=== PATIENT | female | born 1955 | race Caucasian/White ===

== ENCOUNTER → 2018-11-30 | Outpatient (CLI) | payer MEDICARE, MEDICAID ==
[2018-11-30 12:56] LABS: ABG BASE EXCESS 1.8 MMOL/L (-2.5-2.5); ABG OXYGEN SATURATION 98 % (94-100); ABG PCO2 37 MMHG (35-45); ABG PH 7.45 (7.37-7.43); ABG PO2 106 MMHG (79-93); ABG TCO2 26.8 MMOL/L (21.0-31.0)
[2018-11-30 12:57] LABS: ALLENS TEST YES-POS; INSPIRED O2 ROOM AIR
== END ==
LOC: LAB FS 09:55
PROVIDERS: ATTEND Family Medicine
DX: J44.9 Chronic obstructive pulmonary disease, unspecified (principal)
CPT/HCPCS: 82805

== ENCOUNTER → 2018-12-28 | Outpatient (CLI) | payer MEDICARE, MEDICAID ==
[2018-12-28 10:53] LABS: CARBON DIOXIDE 23 MMOL/L (21-32); CHLORIDE 105 MMOL/L (98-107); POTASSIUM 4.4 MMOL/L (3.6-5.0); SODIUM 140 MMOL/L (135-145)
[2018-12-28 10:54] LABS: ALANINE AMINOTRANSFERASE 105 U/L (0-55); ALBUMIN 4.2 GM/DL (3.2-4.5); ALKALINE PHOSPHATASE 62 U/L (40-136); BILIRUBIN,TOTAL 0.2 MG/DL (0.1-1.0); BUN/CREATININE RATIO 18; GFR ESTIMATED > 60; GLUCOSE 109 MG/DL (70-105); TOTAL PROTEIN 6.8 GM/DL (6.4-8.2)
[2018-12-28 15:01] LABS: CHOLESTEROL 174 MG/DL (< 200); HDL CHOLESTEROL 53 MG/DL (40-60); TRIGLYCERIDES 163 MG/DL (<150); VLDL CHOLESTEROL 33 MG/DL (5-40)
== END ==
LOC: LAB FS 09:12
PROVIDERS: ATTEND Internal Medicine Cardiovascular Disease
DX: E78.00 Pure hypercholesterolemia, unspecified (principal); I25.5 Ischemic cardiomyopathy; I25.118 Atherosclerotic heart disease of native coronary artery with other forms of angina pectoris; I10 Essential (primary) hypertension
CPT/HCPCS: 36415; 80053; 80061

== ENCOUNTER 2019-08-12 15:25 | Emergency (ER) | payer MEDICARE, MEDICAID ==
[~2019-08-12] VITALS: Ht 160 cm; Wt 93.7 kg
[2019-08-12] MEDS ORDERED: NS IV 1000 ML 1,000 ML IV SCH (16:47)
[2019-08-12] MEDS ORDERED: AMPICILLIN/SULBACTAM INJECTION 3 GM in NS (IVPB) 100 ML IV ONE (17:00)
[2019-08-12] MEDS ORDERED: ONDANSETRON 4 MG/2 ML (SDV) Z0FRAN IVP ONE (17:00)
[2019-08-12] MEDS ORDERED: TETANUS,DIPTH,PERTUSS P/F (BOOSTRIX) 0.5 ML VIAL IM ONE (17:00)
[2019-08-12] MEDS ORDERED: KETOROLAC 30 MG/ML VIAL IVP ONE (17:00)
[2019-08-12] MEDS ORDERED: oxyCODONE/APAP 5/325MG (PERCOCET 5) TABLET PO ONE (17:00)
--- NOTE | 2019-08-12 17:09 | Diagnostic Imaging Report ---
INDICATION: Right hand swelling and redness after cat bite. COMPARISON: Right wrist radiographs performed concurrently. TECHNIQUE: Three views of the right hand were obtained. FINDINGS: Marked soft tissue swelling in the dorsal aspect of the hand is noted. No osseous erosions or cortical indistinctness. No fracture. Scattered degenerative changes throughout the interphalangeal joints. There are also degenerative changes of the thumb base. IMPRESSION: 1. Soft tissue swelling without radiographic features of osteomyelitis. Dictated by: Dictated on workstation # [id number]
--- NOTE | 2019-08-12 17:21 | Diagnostic Imaging Report ---
INDICATION: Wrist swelling after cat bite. COMPARISON: Right hand radiographs performed concurrently. FINDINGS: Dorsal soft tissue swelling is present in the hand and wrist. No radiopaque foreign body. No fracture or osseous erosions. Degenerative changes in the thumb base are present. IMPRESSION: Soft tissue swelling without radiographic features of osteomyelitis. Dictated by: Dictated on workstation # [id number]
--- NOTE | 2019-08-12 18:26 | ED General ---
General Chief Complaint: General Problems/Pain Stated Complaint: RT HAND SWELLING/REDNESS HX CAT BITE History of Present Illness Date Seen by Provider: Aug 12, 2019 Time Seen by Provider: 16:00 Initial Comments The patient is a 63-year-old female who presents for evaluation of cat bites to her right hand occurring yesterday. Patient states that she "messed with" her cat and it bit her. The cat's immunizations are up-to-date. She sustained several bites over her dorsal right hand and wrist. These just ached until earlier today when they became acutely swollen and red and painful. Upon arrival to the emergency department the patient's hand and wrist are mildly red and swollen. She denies any fevers, nausea or vomiting or other systemic symptoms of concern. She denies any pain or swelling proximal to the wrist or very distal forearm on the right. No therapy for discomfort prior to arrival. Tetanus is not up-to-date. Allergies and Home Medications Allergies Coded Allergies: No Known Drug Allergies (Unverified , 08/12/19) Patient Home Medication List Home Medication List Reviewed: Yes Review of Systems Review of Systems Constitutional: see HPI All Other Systems Reviewed Negative Unless Noted: Yes (Negative excepted noted.) Past Fbghvzp-Hqndal-Yzjfuf Hx Past Med/Social Hx: Reviewed Nursing Past Med/Soc Hx Patient Social History Recent Foreign Travel: No Family Medical History Reviewed Nursing Family Hx Physical Exam Vital Signs Capillary Refill : Height, Weight, BMI Height: '" Weight: lbs. oz. kg; BMI Method: General Appearance: No Apparent Distress Comments This is an older female appearing nontoxic and in no acute distress. Head is normocephalic and atraumatic. Neck is supple and nontender. Oropharynx is moist. Lungs are clear to auscultation in all stations. There is a normal S1 and S2 without rubs or gallops and capillary refill is appropriate, less than 2 seconds globally. Abdomen is soft, nontender and nondistended. Skin is warm and dry without cyanosis, clubbing or edema. Psychiatrically, the patient demonstrates appropriate mood and affect and is alert. From a musculoskeletal standpoint, evaluation of the right upper extremity is remarkable for moderate tenderness and erythema and swelling affecting the dorsal aspect of the right hand radiating up into the very distal-most several centimeters of the right forearm. There is no proximal lymphangitic streaking. There is no significant swelling of the digits of the hand. There is no joint irritability to the right upper extremity. The right upper extremity is neurovascularly intact distally with strength 5 out of 5, sensation intact to light touch in median, radial and ulnar nerve distributions, radial pulse 2+, capillary refill less than 2 seconds, hand warm and well perfused. Progress/Results/Core Measures Suspected Sepsis SIRS Temperature: Pulse: Respiratory Rate: Blood Pressure / Mean: Results/Orders My Orders Orders - JAZZ BAUTISTA MD Ampicillin/Sulbactam Injection (Unasyn 3 (08/12/19 17:00) Ondansetron Injection (Zofran Injectio (08/12/19 17:00) Ed Iv/Invasive Line Start (08/12/19 16:47) Ns Iv 1000 Ml (Sodium Chloride 0.9%) (08/12/19 16:47) Ketorolac Injection (Toradol Injection) (08/12/19 17:00) Oxycodone/Apap 5/325mg Tablet (Percocet (08/12/19 17:00) Hand 3 View Right (08/12/19 16:47) Wrist 3 View Right (08/12/19 16:47) Dipht,Pertuss(Acell),Tet Adult (Boostrix (08/12/19 17:00) Medications Given in ED Current Medications Medications Dose Ordered Sig/Timmy Route Start Time Stop Time Status Last Admin Dose Admin Ampicillin Sodium/ Sulbactam Sodium 3 gm/Sodium Chloride 100 ml @ 200 mls/hr ONCE ONCE IV 08/12/19 17:00 08/12/19 17:29 DC 08/12/19 18:01 200 MLS/HR Diphtheria/ Tetanus/Acell Pertussis 0.5 ml ONCE ONCE IM 08/12/19 17:00 08/12/19 17:01 DC 08/12/19 18:00 0.5 ML Ketorolac Tromethamine 30 mg ONCE ONCE IVP 08/12/19 17:00 08/12/19 17:01 DC 08/12/19 18:01 30 MG Ondansetron HCl 4 mg ONCE ONCE IVP 08/12/19 17:00 08/12/19 17:01 DC 08/12/19 18:01 4 MG Oxycodone/ Acetaminophen 1 tab ONCE ONCE PO 08/12/19 17:00 08/12/19 17:01 DC 08/12/19 18:01 1 TAB Vital Signs/I&O Capillary Refill : Progress Note : Time: 18:26 Progress Note 63-year-old female with an apparent localized right hand and wrist cellulitis related to cat bite sustained yesterday. No systemic symptoms. We will check plain films to evaluate for retained teeth or bony injury although low suspicion for these. We'll update tetanus. We'll treat discomfort. We'll place IV and give a dose of IV Unasyn and then plan for discharge home on oral Augmentin and pain medications with a plan to follow up with primary care in the next 1-2 days. I did discuss with the patient that if her symptoms worsen overnight instead of improving then she needs to return to the emergency department right away and at that point will likely need to be admitted. She understands and agrees with this plan of care. Update: Patient is feeling better after pain medication and Unasyn dose here in the emergency department. We'll discharge home on Augmentin as well as diclofenac and Percocet for pain. I reiterated to the patient that it is imperative that she return right away if her symptoms worsen or if other new symptoms of concern develop. She understands and agrees. Diagnostic Imaging Comments POSWRIST 3 VIEW RIGHT INDICATION: Wrist swelling after cat bite. COMPARISON: Right hand radiographs performed concurrently. FINDINGS: Dorsal soft tissue swelling is present in the hand and wrist. No radiopaque foreign body. No fracture or osseous erosions. Degenerative changes in the thumb base are present. IMPRESSION: Soft tissue swelling without radiographic features of osteomyelitis. Dictated by: Dictated on workstation # [id number] Date of Exam:08/12/19 HAND 3 VIEW RIGHT INDICATION: Right hand swelling and redness after cat bite. COMPARISON: Right wrist radiographs performed concurrently. TECHNIQUE: Three views of the right hand were obtained. FINDINGS: Marked soft tissue swelling in the dorsal aspect of the hand is noted. No osseous erosions or cortical indistinctness. No fracture. Scattered degenerative changes throughout the interphalangeal joints. There are also degenerative changes of the thumb base. IMPRESSION: 1. Soft tissue swelling without radiographic features of osteomyelitis. Dictated on workstation # [id number] Departure Impression Primary Impression: Cat bite of right hand with infection Qualified Codes: S61.451A - Open bite of right hand, initial encounter; L08.9 - Local infection of the skin and subcutaneous tissue, unspecified; W55.01XA - Bitten by cat, initial encounter Disposition: 01 HOME, SELF-CARE Condition: Improved Departure-Patient Inst. Referrals: SHANNAN BOYCE MD (PCP/Family) Primary Care Physician Patient Instructions: Animal Bites (DC), Wound Infection Add. Discharge Instructions: Follow-up with her primary care physician in the next 1-2 days as discussed. Use the antibiotic and pain medications as prescribed. Return right away with worsening symptoms or any other new symptoms of concern. Scripts Amoxicillin/Potassium Clav (Augmentin 875-125 Tablet) 1 Each Tablet 1 TAB PO BID for 10 Days, #20 TAB 0 Refills Prov: JAZZ BAUTISTA MD 08/12/19 Oxycodone HCl/Acetaminophen (Percocet 5-325 mg Tablet) 1 Each Tablet 1 TAB PO Q6H for Breakthrough Pain MDD 6 TABS for 7 Days, #10 TAB Prov: JAZZ BAUTISTA MD 08/12/19 Diclofenac Potassium (Diclofenac Potassium) 50 Mg Tablet 50 MG PO Q8H for pain/swelling, #30 TAB Prov: JAZZ BAUTISTA MD 08/12/19 JAZZ BAUTISTA MD Aug 12, 2019 18:26 POS
[2019-08-12] MEDS ORDERED: OXYC1TAB87 PO (18:32)
[2019-08-12] MEDS ORDERED: AMOX-358 PO (18:32)
[2019-08-12] MEDS ORDERED: DICL50TA4 PO (18:32)
[2019-08-12 19:50] VITALS: BP 137/58
== END 2019-08-12 19:50 | disposition home or self-care (01) ==
LOC: EDUNIT# 15:25 → ER FS 15:26
DX: S61.451A Open bite of right hand, initial encounter (principal); L08.9 Local infection of the skin and subcutaneous tissue, unspecified; Z23 Encounter for immunization; W55.01XA Bitten by cat, initial encounter
CPT/HCPCS: 73110; 73130; 90715

== ENCOUNTER → 2019-12-27 | Outpatient (CLI) | payer MEDICARE, MEDICAID ==
[~2019-12-27] MED LIST: AMOX-358 PO; CATHETER FLUSH 10 ML SYR IV PRN; DICL50TA4 PO; HOLD METFORMIN - RECEIVED CONTRAST 20 ML VIAL IV SCH; IOHEXOL 350 MG/ML 100 ML (OMNIPAQUE 350) VIAL IV ONE; NS 100 ML (IVPB) BAG IV ONE; OXYC1TAB87 PO
[2019-12-27 12:34] LABS: BASOPHILS % (AUTO) 1 % (0-10); EOSINOPHILS % (AUTO) 2 % (0-10); HEMATOCRIT 37 % (35-52); HEMOGLOBIN 13.2 G/DL (11.5-16.0); LYMPHOCYTES # (AUTO) 3.3 X 10^3 (1.0-4.0); LYMPHOCYTES % (AUTO) 22 % (12-44); MEAN CORPUSCULAR HEMOGLOBIN 32 PG (25-34); MEAN CORPUSCULAR HGB CONC 36 G/DL (32-36); MEAN CORPUSCULAR VOLUME 89 FL (80-99); MEAN PLATELET VOLUME 10.1 FL (7.4-10.4); MONOCYTES % (AUTO) 10 % (0-12); NEUTROPHILS # (AUTO) 9.9 X 10^3 (1.8-7.8); NEUTROPHILS % (AUTO) 65 % (42-75); PLATELET COUNT 331 10^3/uL (130-400); RED CELL DISTRIBUTION WIDTH 12.2 % (10.0-14.5); WHITE BLOOD COUNT 15.1 10^3/uL (4.3-11.0)
[2019-12-27 12:35] LABS: BASOPHILS # (AUTO) 0.1 10^3/uL (0.0-0.1); EOSINOPHILS # (AUTO) 0.3 10^3/uL (0.0-0.3); MONOCYTES # (AUTO) 1.5 X 10^3 (0.0-1.0)
[2019-12-27 12:49] LABS: CHLORIDE 95 MMOL/L (98-107); POTASSIUM 3.2 MMOL/L (3.6-5.0); SODIUM 138 MMOL/L (135-145)
[2019-12-27 12:50] LABS: ALANINE AMINOTRANSFERASE 46 U/L (0-55); ALBUMIN 4.5 GM/DL (3.2-4.5); ALKALINE PHOSPHATASE 53 U/L (40-136); BUN/CREATININE RATIO 13; CARBON DIOXIDE 26 MMOL/L (21-32); CREATININE SERUM 0.79 MG/DL (0.60-1.30); GFR ESTIMATED > 60; GLUCOSE 109 MG/DL (70-105); LIPASE 29 U/L (8-78); TOTAL PROTEIN 7.2 GM/DL (6.4-8.2)
--- NOTE | 2019-12-27 13:50 | Diagnostic Imaging Report ---
PROCEDURE: CT abdomen and pelvis with contrast. TECHNIQUE: Multiple contiguous axial images were obtained through the abdomen and pelvis after administration of intravenous contrast. Auto Exposure Controls were utilized during the CT exam to meet ALARA standards for radiation dose reduction. INDICATION: Right-sided abdominal pain for two days as well as nausea. COMPARISON: No prior studies are available for comparison. FINDINGS: Lung bases are clear. There does appear to be a moderate-sized hiatal hernia. Liver does show some mild generalized low density, suggestive of hepatic steatosis. Gallbladder is surgically absent. Multiple surgical clips in the gallbladder fossa are noted. There is calcification along the right lobe liver edge. This may represent a granuloma. There is a 9 mm indeterminate low density in the inferior right lobe of the liver. This is too small to characterize. The pancreas and spleen are unremarkable. No adrenal mass is detected. Kidneys contain tiny cortical low densities, too small to characterize. No hydronephrosis is seen. Aorta is nonaneurysmal. There does appear to be an enlarged lymph node in the central retroperitoneum in the upper aortocaval location measuring 1.5 x 2.2 cm. Slightly prominent lymph node in the portacaval location is also seen measuring 2.0 x 1.0 cm. There is an enlarged lymph node in the left para-aortic location at the level of the renal vasculature measuring 1.8 cm. An aortocaval node measures 2.2 x 1.5 cm. There is some slight hazy density in the region of the proximal SMA and celiac. There is a low-density lesion in the region of the uncinate process of the pancreas measuring 1.6 cm. There is a lymph node just lateral to this measuring 15 mm. No significant pancreatic ductal dilatation is seen. The small and large bowel loops are normal in caliber. No obstruction is seen. There is no free fluid or fluid collection. The bladder is decompressed. No pelvic lymphadenopathy is detected. IMPRESSION: 1. Hiatal hernia. 2. Subcentimeter indeterminate low density in the inferior right lobe of the liver. 3. Central retroperitoneal as well as portacaval and luisa hepatis lymphadenopathy. There is a low density in the central retroperitoneum which may be within the pancreatic parenchyma near the uncinate, concerning for a pancreatic mass. No significant pancreatic or biliary ductal dilatation is seen. A PET scan may be useful for further evaluation. Dictated by: Dictated on workstation # [id number]
[2019-12-27 14:30] LABS: BAND NEUTROPHILS 0 %; BASOPHILS % (MANUAL) 1 %; EOSINOPHILS % (MANUAL) 2 %; LYMPHOCYTES % (MANUAL) 24 %; MONOCYTES % (MANUAL) 9 %; NEUTROPHILS % (MANUAL) 64 %; RBC MORPH NORMAL
== END ==
LOC: RAD FS 11:59
PROVIDERS: ATTEND Family Medicine
DX: R10.11 Right upper quadrant pain (principal); K44.9 Diaphragmatic hernia without obstruction or gangrene; K76.9 Liver disease, unspecified; R59.0 Localized enlarged lymph nodes
CPT/HCPCS: 36415; 74177; 80053; 83690; 85007; 85027

== ENCOUNTER → 2020-01-07 | Outpatient (CLI) | payer MEDICARE, MEDICAID ==
[~2020-01-07] MED LIST changes: -CATHETER FLUSH 10 ML SYR IV PRN; -HOLD METFORMIN - RECEIVED CONTRAST 20 ML VIAL IV SCH; -IOHEXOL 350 MG/ML 100 ML (OMNIPAQUE 350) VIAL IV ONE; -NS 100 ML (IVPB) BAG IV ONE
--- NOTE | 2020-01-07 16:17 | Diagnostic Imaging Report ---
INDICATION: Abnormal recent CT study demonstrating enlarged lymph nodes in the upper abdomen as well as a cystic lesion in the region of the pancreas. This study is performed for further evaluation. TECHNIQUE: Serum blood glucose level at the time of injection is 137 mg/dL. Patient was administered 12.6 mCi of F-18 FDG intravenously in the left antecubital location and PET imaging was performed from the top of skull to mid thighs. Noncontrast CT was also performed for attenuation correction and anatomic correlation. Correlation is made with recent CT study from 12/27/2019. No prior PET/CT study is available for comparison. FINDINGS: There is symmetric activity throughout the brain. Soft tissues of the neck are unremarkable. The mediastinum and adolfo are unremarkable. No pulmonary parenchymal hypermetabolism is identified. Abdomen and pelvis demonstrate physiologic activity within the GI and tracts. Previously noted prominent lymph nodes in the upper abdomen show a somewhat low-level activity. A lymph node in the aortocaval region at the level of the renal vasculature demonstrates an SUV max of 3.4. No hypermetabolism in the region of the cystic lesion adjacent to the pancreas is identified. No other suspicious abnormalities are identified in the abdomen or pelvis. IMPRESSION: Only low-level activity within prominent lymph nodes in the upper abdomen is identified, indeterminate. Cystic lesion within or adjacent to the uncinate process of the pancreas is without hypermetabolism. Even so, continued close-interval follow-up with CT would be recommended to confirm stability. Dictated by: Dictated on workstation # [id number]
== END ==
LOC: RAD 10:35
PROVIDERS: ATTEND Family Medicine
DX: R59.0 Localized enlarged lymph nodes (principal)

== ENCOUNTER 2021-04-05 18:57 | Observation (INO) | payer MEDICARE, MEDICAID ==
[~2021-04-05] VITALS: Ht 162.5 cm; Wt 85.7 kg
--- NOTE | 2021-04-05 19:14 | ED General ---
General Stated Complaint: SWELLING IN LEGS/ABD Source of Information: Patient History of Present Illness Date Seen by Provider: Apr 05, 2021 Time Seen by Provider: 19:10 Initial Comments 65-year-old female presents with swelling of her abdomen and lower extremities for the past 10 days and gradually getting worse. Past medical history significant for coronary artery disease with heart attack and multiple stents in 1997. Patient denies any recent illness, fever chills, chest pain or shortness of air, nausea vomiting or diarrhea. Similar episodes of swelling in the past. She does state she had a bad fall out of bed landing on her face and stomach 3 weeks ago.... She is not sure if that caused the problem. Allergies and Home Medications Allergies Coded Allergies: No Known Drug Allergies (Unverified , 08/12/19) Home Medications Amoxicillin/Potassium Clav 1 Each Tablet, 1 TAB PO BID Prescribed by: JAZZ BAUTISTA on 08/12/191831 Diclofenac Potassium 50 Mg Tablet, 50 MG PO Q8H Prescribed by: JAZZ BAUTISTA on 08/12/191831 Oxycodone HCl/Acetaminophen 1 Each Tablet, 1 TAB PO Q6H Prescribed by: JAZZ BAUTISTA on 08/12/191831 Patient Home Medication List Home Medication List Reviewed: Yes Review of Systems Review of Systems Constitutional: No chills, No fever; malaise, weight gain EENTM: no symptoms reported Respiratory: No cough, No short of breath Cardiovascular: No chest pain; edema; No palpitations, No syncope Gastrointestinal: abdominal pain, loss of appetite; No nausea, No vomiting Genitourinary: No dysuria, No frequency, No hematuria Musculoskeletal: No back pain, No joint pain, No joint swelling Skin: change in color (redness of legs) Psychiatric/Neurological: Denies Headache, Denies Numbness, Denies Seizure Past Rywdhbh-Cbsghc-Ymiibn Hx Patient Social History Tobacco Use?: No Seasonal Allergies Seasonal Allergies: No Past Medical History Surgeries: Yes Appendectomy, Coronary Stent, Gallbladder, Orthopedic Respiratory: Yes COPD Cardiac: Yes Coronary Artery Disease, Hypertension Neurological: No Genitourinary: No Gastrointestinal: No Musculoskeletal: No Endocrine: Yes Diabetes, Non-Insulin dep HEENT: No Cancer: No Psychosocial: No Integumentary: No Physical Exam Vital Signs Vital Signs - First Documented 04/05/21 18:59 Temp 36.5 Pulse 70 Resp 18 B/P (MAP) 157/68 (97) Pulse Ox 99 Capillary Refill : Height, Weight, BMI Height: '" Weight: lbs. oz. kg; 36.00 BMI Method: General Appearance: No Apparent Distress, WD/WN Eyes: Bilateral Eye PERRL, Bilateral Eye EOMI HEENT: PERRL/EOMI, Normal ENT Inspection Neck: Full Range of Motion, Non Tender, Supple Respiratory: Chest Non Tender, Lungs Clear Cardiovascular: Regular Rate, Rhythm, No JVD, Other (Moderate symmetrical LE edema from feet up to thighs and abdomen) Gastrointestinal: Distended (and firm); No Guarding, No Hernia Back: Normal Inspection, No CVA Tenderness, No Vertebral Tenderness Neurologic/Psychiatric: Alert, Oriented x3, No Motor/Sensory Deficits, Normal Mood/Affect Focused Exam Lactate Level 04/05/21 19:24: Lactic Acid Level 1.88 Lactic Acid Level Laboratory Tests Test 04/05/21 19:24 Lactic Acid Level 1.88 MMOL/L (0.50-2.00) Progress/Results/Core Measures Suspected Sepsis SIRS Temperature: Pulse: Respiratory Rate: Laboratory Tests 04/05/21 19:12: White Blood Count 11.0 Blood Pressure / Mean: 04/05/21 19:24: Lactic Acid Level 1.88 Laboratory Tests 04/05/21 19:12: Creatinine 1.21, INR Comment 1.0, Platelet Count 287, Total Bilirubin 0.3 Results/Orders Lab Results Laboratory Tests Test 04/05/21 19:12 04/05/21 19:22 04/05/21 19:24 Range/Units White Blood Count 11.0 4.3-11.0 10^3/uL Red Blood Count 3.86 L 4.35-5.85 10^6/uL Hemoglobin 11.8 11.5-16.0 G/DL Hematocrit 37 35-52 % Mean Corpuscular Volume 97 80-99 FL Mean Corpuscular Hemoglobin 31 25-34 PG Mean Corpuscular Hemoglobin Concent 32 32-36 G/DL Red Cell Distribution Width 14.5 10.0-14.5 % Platelet Count 287 130-400 10^3/uL Mean Platelet Volume 10.5 H 7.4-10.4 FL Immature Granulocyte % (Auto) 0 % Neutrophils (%) (Auto) 60 42-75 % Lymphocytes (%) (Auto) 26 12-44 % Monocytes (%) (Auto) 12 0-12 % Eosinophils (%) (Auto) 1 0-10 % Basophils (%) (Auto) 1 0-10 % Neutrophils # (Auto) 6.6 1.8-7.8 X 10^3 Lymphocytes # (Auto) 2.9 1.0-4.0 X 10^3 Monocytes # (Auto) 1.3 H 0.0-1.0 X 10^3 Eosinophils # (Auto) 0.1 0.0-0.3 10^3/uL Basophils # (Auto) 0.1 0.0-0.1 10^3/uL Immature Granulocyte # (Auto) 0.0 0.0-0.1 10^3/uL Percent Immature Platelet Fraction 2.8 0.0-7.6 % Prothrombin Time 13.9 12.2-14.7 SEC INR Comment 1.0 0.8-1.4 Activated Partial Thromboplast Time 29 24-35 SEC D-Dimer 2.12 H 0.00-0.49 UG/ML Sodium Level 142 135-145 MMOL/L Potassium Level 3.7 3.6-5.0 MMOL/L Chloride Level 103 98-107 MMOL/L Carbon Dioxide Level 25 21-32 MMOL/L Anion Gap 14 5-14 MMOL/L Blood Urea Nitrogen 18 7-18 MG/DL Creatinine 1.21 0.60-1.30 MG/DL Estimat Glomerular Filtration Rate 44 BUN/Creatinine Ratio 15 Glucose Level 74 70-105 MG/DL Calcium Level 9.3 8.5-10.1 MG/DL Corrected Calcium 9.2 8.5-10.1 MG/DL Total Bilirubin 0.3 0.1-1.0 MG/DL Aspartate Amino Transf (AST/SGOT) 21 5-34 U/L Alanine Aminotransferase (ALT/SGPT) 15 0-55 U/L Alkaline Phosphatase 71 40-136 U/L Pro-B-Type Natriuretic Peptide 6812.0 H <75.0 PG/ML Total Protein 6.9 6.4-8.2 GM/DL Albumin 4.1 3.2-4.5 GM/DL Urine Color YELLOW Urine Clarity CLEAR Urine pH 6.0 5-9 Urine Specific [place] 1.010 L 1.016-1.022 Urine Protein 2+ H NEGATIVE Urine Glucose (UA) NEGATIVE NEGATIVE Urine Ketones NEGATIVE NEGATIVE Urine Nitrite NEGATIVE NEGATIVE Urine Bilirubin NEGATIVE NEGATIVE Urine Urobilinogen 0.2 < = 1.0 MG/DL Urine Leukocyte Esterase NEGATIVE NEGATIVE Urine RBC (Auto) NEGATIVE NEGATIVE Urine RBC NONE /HPF Urine WBC 0-2 /HPF Urine Squamous Epithelial Cells RARE /HPF Urine Crystals NONE /LPF Urine Bacteria NEGATIVE /HPF Urine Casts NONE /LPF Urine Mucus NEGATIVE /LPF Urine Culture Indicated NO Lactic Acid Level 1.88 0.50-2.00 MMOL/L My Orders Orders - ELISA WOOD DO Ed Iv/Invasive Line Start (04/05/21 19:14) Urinalysis (04/05/21 19:14) Protime With Inr (04/05/21 19:14) Partial Thromboplastin Time (04/05/21 19:14) Cbc With Automated Diff (04/05/21 19:14) Comprehensive Metabolic Panel (04/05/21 19:14) Lactic Acid Analyzer (04/05/21 19:14) Ct Abdomen/Pelvis W (04/05/21 19:14) Iohexol Injection (Omnipaque 350 Mg/Ml 1 (04/05/21 19:30) Received Contrast (Hold Metformin- Contr (04/05/21 19:30) Ns (Ivpb) (Sodium Chloride 0.9% Ivpb Bag (04/05/21 19:30) Probnp Fs (04/05/21 19:41) Fibrin Degradation Products (04/05/21 19:41) Chest 1 View Ap/Pa Only (04/05/21 19:46) Ekg Tracing (04/05/21 19:46) Medications Given in ED Current Medications Medications Dose Ordered Sig/Timmy Route Start Time Stop Time Status Last Admin Dose Admin Iohexol 100 ml ONCE ONCE IV 04/05/21 19:30 04/05/21 19:31 DC 04/05/21 19:51 75 ML Sodium Chloride 100 ml ONCE ONCE IV 04/05/21 19:30 04/05/21 19:31 DC 04/05/21 19:52 100 ML Vital Signs/I&O 04/05/21 18:59 Temp 36.5 Pulse 70 Resp 18 B/P (MAP) 157/68 (97) Pulse Ox 99 Capillary Refill : ECG Initial ECG Impression Date: Apr 05, 2021 Initial ECG Impression Time: 20:10 Initial ECG Rate: 60 Initial ECG Rhythm: Normal Sinus Initial ECG Intervals: Normal Initial ECG Comparisson: No Previous ECG Available Diagnostic Imaging Diagonstic Imaging: Xray Plain Films/CT/US/NM/MRI: chest Comments Date of Exam:04/05/21 CHEST 1 VIEW AP/PA ONLY Indication: Shortness of breath x10 days Portable chest 8:03 PM Heart size and pulmonary vascularity are normal. Lungs are clear. There are no effusions or pneumothoraces. IMPRESSION: Negative chest Dictated by: Dictated on workstation # [id number] Dict: 04/05/212010 Trans: 04/05/212010 TCB [id number] Interpreted by: ALYSSA BURCIAGA MD Electronically signed by: ALYSSA BURCIAGA MD 04/05/212010 Date of Exam:04/05/21 CT ABDOMEN/PELVIS W PROCEDURE: CT abdomen and pelvis with contrast. TECHNIQUE: Multiple contiguous axial images were obtained through the abdomen and pelvis after administration of intravenous contrast. Auto Exposure Controls were utilized during the CT exam to meet ALARA standards for radiation dose reduction. All CT scans use one or more of the following dose optimizing techniques: automated exposure control, MA and/or KvP adjustment based on patient size and exam type or iterative reconstruction. INDICATION: Left-sided abdominal pain x10 days The lung bases are clear. There is a moderate amount of ascites. Liver appears cirrhotic. The gallbladder is surgically absent. The portal vein is patent. Pancreas appears normal. Spleen is not enlarged. Kidneys and adrenals appear normal. Small bowel is not dilated. Colon appears normal. There is a sliding hiatal hernia. IMPRESSION: Cirrhotic liver. Hiatal hernia. Moderate amount ascites. Dictated by: Dictated on workstation # [id number] Dict: 04/05/212012 Trans: 04/05/212015 TCB [id number] Interpreted by: ALYSSA BURCIAGA MD Electronically signed by: ALYSSA BURCIAGA MD 04/05/212015 Departure Communication (Admissions) Time/Spoke to Admitting Phy: 20:[address] Murguia who accepts for admission. Advised to start Lasix and spironolactone Impression Primary Impression: Abdominal ascites Qualified Codes: R18.8 - Other ascites Additional Impression: Cirrhosis of liver Qualified Codes: K74.60 - Unspecified cirrhosis of liver; R18.8 - Other ascites Disposition: 30 STILL A PATIENT Condition: Stable Admissions Decision to Admit Reason: Admit from ER (General) Decision to Admit/Date: Apr 05, 2021 Time/Decision to Admit Time: 19:10 Departure-Patient Inst. Referrals: SHANNAN BOYCE MD (PCP/Family) Primary Care Physician ELISA WOOD DO Apr 05, 2021 19:14
[2021-04-05 19:30] LABS: HEMATOCRIT 37 % (35-52); HEMOGLOBIN 11.8 G/DL (11.5-16.0); MEAN CORPUSCULAR HEMOGLOBIN 31 PG (25-34)
[2021-04-05] MEDS ORDERED: IOHEXOL 350 MG/ML 100 ML (OMNIPAQUE 350) VIAL IV ONE (19:30)
[2021-04-05] MEDS ORDERED: NS 100 ML (IVPB) BAG IV ONE (19:30)
[2021-04-05] MEDS ORDERED: HOLD METFORMIN - RECEIVED CONTRAST 20 ML VIAL IV SCH (19:30)
[2021-04-05 19:31] LABS: BASOPHILS # (AUTO) 0.1 10^3/uL (0.0-0.1); BASOPHILS % (AUTO) 1 % (0-10); EOSINOPHILS # (AUTO) 0.1 10^3/uL (0.0-0.3); EOSINOPHILS % (AUTO) 1 % (0-10); LYMPHOCYTES # (AUTO) 2.9 X 10^3 (1.0-4.0); LYMPHOCYTES % (AUTO) 26 % (12-44); MEAN CORPUSCULAR HGB CONC 32 G/DL (32-36); MEAN CORPUSCULAR VOLUME 97 FL (80-99); MEAN PLATELET VOLUME 10.5 FL (7.4-10.4); MONOCYTES # (AUTO) 1.3 X 10^3 (0.0-1.0); MONOCYTES % (AUTO) 12 % (0-12); NEUTROPHILS # (AUTO) 6.6 X 10^3 (1.8-7.8); NEUTROPHILS % (AUTO) 60 % (42-75); PLATELET COUNT 287 10^3/uL (130-400)
[2021-04-05 19:32] LABS: PROTHROMBIN TIME PATIENT 13.9 SEC (12.2-14.7)
[2021-04-05 19:37] LABS: BACTERIA,URINE NEGATIVE /HPF; BILIRUBIN,URINE NEGATIVE (NEGATIVE); CLARITY,URINE CLEAR; COLOR,URINE YELLOW; GLUCOSE, URINE (UA) NEGATIVE (NEGATIVE); KETONES,URINE NEGATIVE (NEGATIVE); LEUKOCYTE ESTERASE ,URINE NEGATIVE (NEGATIVE); NITRITE,URINE NEGATIVE (NEGATIVE); PROTEIN,URINE 2+ (NEGATIVE); SQUAMOUS EPITHELIAL CELL,UR RARE /HPF; WBC,URINE 0-2 /HPF
[2021-04-05 19:39] LABS: BILIRUBIN,TOTAL 0.3 MG/DL (0.1-1.0); CALCIUM 9.3 MG/DL (8.5-10.1); CREATININE SERUM 1.21 MG/DL (0.60-1.30); POTASSIUM 3.7 MMOL/L (3.6-5.0); TOTAL PROTEIN 6.9 GM/DL (6.4-8.2)
[2021-04-05 19:40] LABS: ALBUMIN 4.1 GM/DL (3.2-4.5)
--- NOTE | 2021-04-05 20:13 | Diagnostic Imaging Report ---
Indication: Shortness of breath x10 days Portable chest 8:03 PM Heart size and pulmonary vascularity are normal. Lungs are clear. There are no effusions or pneumothoraces. IMPRESSION: Negative chest Dictated by: Dictated on workstation # [id number]
--- NOTE | 2021-04-05 20:17 | Diagnostic Imaging Report ---
PROCEDURE: CT abdomen and pelvis with contrast. TECHNIQUE: Multiple contiguous axial images were obtained through the abdomen and pelvis after administration of intravenous contrast. Auto Exposure Controls were utilized during the CT exam to meet ALARA standards for radiation dose reduction. All CT scans use one or more of the following dose optimizing techniques: automated exposure control, MA and/or KvP adjustment based on patient size and exam type or iterative reconstruction. INDICATION: Left-sided abdominal pain x10 days The lung bases are clear. There is a moderate amount of ascites. Liver appears cirrhotic. The gallbladder is surgically absent. The portal vein is patent. Pancreas appears normal. Spleen is not enlarged. Kidneys and adrenals appear normal. Small bowel is not dilated. Colon appears normal. There is a sliding hiatal hernia. IMPRESSION: Cirrhotic liver. Hiatal hernia. Moderate amount ascites. Dictated by: Dictated on workstation # [id number]
[2021-04-05] MEDS ORDERED: FUROSEMIDE 40 MG/4 ML INJ (LASIX) IVP ONE (21:00)
[2021-04-05 22:45] VITALS: BP 155/77
[2021-04-05] MEDS ORDERED: CATHETER FLUSH 10 ML SYR IV PRN (23:00)
[2021-04-06 00:29] VITALS: BP 155/77
[2021-04-06 04:31] VITALS: BP 157/84
[2021-04-06] MEDS: CATHETER FLUSH 10 ML SYR IV SCH ×3 (06:04→22:29)
[2021-04-06] MEDS ORDERED: FUROSEMIDE 40 MG/4 ML INJ (LASIX) IV SCH (07:00)
[2021-04-06 08:00] VITALS: BP 113/67
[2021-04-06] MEDS: SPIRONOLACTONE 25 MG (ALDACTONE) TAB PO SCH ×2 (08:06→19:42)
[2021-04-06 12:00] VITALS: BP 133/74
[2021-04-06] MEDS ORDERED: ASPIRIN E.C. 325 MG (ECOTRIN) TABLET PO ONE (12:00)
[2021-04-06] MEDS ORDERED: REGADENOSON 0.4 MG/5 ML SYR (LEXISCAN) IV ONE (12:15)
--- NOTE | 2021-04-06 12:19 | History & Physical-Hospitalist ---
LILYELISA 04/06/21 1219: History of Present Illness HPI/Chief Complaint 65 F presents Abd/LE Swelling secondary to Liver Cirrhosis onset 10-14 days ago when she stated not feeling well and then went to the hospital. A chest xray was done which showed negative, but a Abd CT showed signs of ascites and cirrhotic liver.. She reports being unable to get rid of the swelling and used Tylenol for the pain. Now complains of a cough and SOB onset yesterday. Denies alcohol usage. Denies any fever, vomiting, diarrhea, nausea, or chest pain. Pt reports latex allergy, lactose intolerance, is a vegetarian, and potential celiac dz (avoids grains). Source: patient Exam Limitations: no limitations Date Seen 04/06/21 Time Seen by a Provider: 09:00 Attending Physician Niecy Alcazar DO PCP Self,Wagner LOBATO Referring Physician Date of Admission Apr 05, 2021 at 22:36 Home Medications & Allergies Home Medications Reviewed patient Home Medication Reconciliation performed by pharmacy medication reconciliations master certified rv technician and/or nursing. Patients Allergies have been reviewed. 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) Tobacco Use?: No Tobacco type used: Cigarettes Smoking Status: Former Smoker (5-6 years 2PPD) Substance use?: No Alcohol Use?: No Pt feels they are or have been: No Immunizations Up To Date First/Initial COVID19 Vaccinat: october 2020 Second COVID19 Vaccination Moi: october 2020 Tetanus Booster (TDap): Unknown Seasonal Allergies Seasonal Allergies: No Current Status status: No Advance Directives: No Communicates: Verbally Primary Language: Brazilian Preferred Spoken Language: Brazilian Is interpretation needed?: No Sensory deficits: Vision impairment Implanted or Applied Medical D: Stents Past Medical History Surgeries: Appendectomy, Coronary Stent, Gallbladder, Orthopedic COPD Coronary Artery Disease, Hypertension 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: Tubal Ligation Diabetes, Non-Insulin dep Thyroid Review of Systems Constitutional: No chills, No fever, No weight loss EENTM: No ear pain, No blurred vision, No vision loss Respiratory: No cough, No short of breath Cardiovascular: No chest pain; edema; No palpitations Gastrointestinal: abdominal pain; No diarrhea, No nausea, No vomiting Genitourinary: No dysuria, No frequency, No incontinence Control/STD Prophylaxis: Other (Tubal Ligation) Musculoskeletal: no symptoms reported Skin: no symptoms reported; No pruritus Psychiatric/Neurological: Denies Headache Physical Exam Physical Exam Vital Signs Vital Signs - First Documented 04/05/21 04/05/21 18:59 21:56 Temp 36.5 Pulse 70 Resp 18 B/P (MAP) 157/68 (97) Pulse Ox 99 O2 Delivery Room Air Capillary Refill : Less Than 3 Seconds Height, Weight, BMI Height: '" Weight: lbs. oz. kg; 32.60 BMI Method: General Appearance: Mild Distress Eyes: Bilateral Eye EOMI HEENT: PERRL/EOMI Neck: Non Tender, Supple Respiratory: Chest Non Tender, Lungs Clear, Normal Breath Sounds Cardiovascular: Regular Rate, Rhythm; No No Murmur Gastrointestinal: Abnormal Bowel Sounds, Distended, Tenderness Extremity: No No Pedal Edema; Swelling Neurologic/Psychiatric: Alert, Oriented x3 Skin: Normal Color, Warm/Dry Results Results/Procedures Labs Laboratory Tests 04/05/21 19:12 Patient resulted labs reviewed. Assessment/Plan Admission Diagnosis Ascites secondary to liver cirrhosis Continue the Lasix and Spironolactone and monitor Congestive heart failure w/ acute left ventricular systolic dysfunction Consult cardiology and evaluate 2D echo BUI Consult surgery for possible paracentsis CAD with previous stents Cardiology Consult Previous Smoker NIECY ALCAZAR 04/07/21 0544: History of Present Illness HPI/Chief Complaint CC: Swelling with abdominal distention HPI: This is a 65yoWF history of BUI who presents with abdominal swelling and lower edema. She was found to have cirrhosis on CT scan. Abdominal ultrasound will be obtained but likely BUI has gone to in-stage liver disease. She will be placed on Lasix and Aldactone. She has a history of CAD and multiple MIs and stents in the past so cardiology Dr. García will be consulted. 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) Smoking Status: Former Smoker (5-6 years 2PPD) Review of Systems Constitutional: see HPI Respiratory: dyspnea on exertion Cardiovascular: edema Physical Exam Physical Exam General Appearance: No Apparent Distress, Anxious, Chronically ill Eyes: Right Eye Normal Inspection, Right Eye PERRL HEENT: PERRL/EOMI, Normal ENT Inspection, Pharynx Normal, Moist Mucous Membranes Neck: Full Range of Motion, Normal Inspection, Non Tender Respiratory: Chest Non Tender, Lungs Clear, Normal Breath Sounds, No Accessory Muscle Use, No Respiratory Distress Cardiovascular: Regular Rate, Rhythm, No Gallop, No JVD, No Murmur, Normal Peripheral Pulses Gastrointestinal: Normal Bowel Sounds, No Organomegaly, No Pulsatile Mass, Non Tender, Soft, Distended, Other (Fluid wave) Back: Normal Inspection, No CVA Tenderness, No Vertebral Tenderness Extremity: Normal Capillary Refill, Normal Inspection, Normal Range of Motion, Non Tender, No Calf Tenderness, Pedal Edema Neurologic/Psychiatric: Alert, Oriented x3, No Motor/Sensory Deficits, Depressed Affect Skin: Normal Color, Warm/Dry Lymphatic: No Adenopathy Assessment/Plan Admission Diagnosis Assessment: Ascites likely due to BUI Congestive heart failure CAD Edema Plan: Diuresis Cardiology management Ultrasound Paracentesis Admission Status: Observation Diagnosis/Problems Diagnosis/Problems (1) Abdominal ascites Status: Acute Qualifiers: Ascites type: other type Qualified Codes: R18.8 - Other ascites (2) Cirrhosis of liver Status: Acute Qualifiers: Hepatic cirrhosis type: unspecified hepatic cirrhosis Ascites presence: with ascites Qualified Codes: K74.60 - Unspecified cirrhosis of liver; R18.8 - Other ascites Supervisory-Addendum Brief Verification & Attestation Participated in pt care: history, MDM, physical Personally performed: exam, history, MDM, supervision of care Care discussed with: Medical Student Procedures: n/a Results interpretation: Verified all documentation Verification and Attestation of Medical Student E/M Service A medical student performed and documented this service in my presence. I reviewed and verified all information documented by the medical student and made modifications to such information, when appropriate. I personally performed the physical exam and medical decision making. Niecy Alcazar Apr 07, 2021,05:44 ELISA BAUTISTA Apr 06, 2021 12:19 NIECY ALCAZAR DO Apr 07, 2021 05:44
--- NOTE | 2021-04-06 12:43 | Consultation-Cardiology ---
HPI-Cardiology Cardiology Consultation Date of Consultation 04/06/21 Date of Admission Time Seen by Provider: 12:39 Indication: Shortness of breath HPI 65-year-old lady with history of coronary artery disease, admitted through the emergency room for increasing abdominal swelling and hepatic cirrhosis. Did not have any previous liver disease, does not drink alcohol. She has been having increasing shortness of breath on exertion, pedal edema, reporting some chest tightness on exertion. No palpitation, no syncope or near syncopal episodes. 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: Former Smoker (5-6 years 2PPD) 2nd Hand Smoke Exposure: No Recent Hopitalizations: No Have you traveled recently?: No Alcohol Use?: No Past Medical History Discussed below Family Medical History Family Medical Hx Family history of atherosclerosis and hypertension Review of Systems-General Review of Systems Constitutional: see HPI; No chills, No fever; malaise; No weight loss EENTM: see HPI; No ear pain, No blurred vision, No vision loss Respiratory: see HPI; No cough; dyspnea on exertion, orthopnea; No short of breath Cardiovascular: see HPI, chest pain, edema; No palpitations Gastrointestinal: see HPI, abdominal pain; No diarrhea, No nausea, No vomiting; other (Abdominal distention) Genitourinary: see HPI; No dysuria, No frequency, No incontinence Control/STD Prophylaxis: Other (Tubal Ligation) Musculoskeletal: no symptoms reported, see HPI Skin: no symptoms reported, see HPI; No pruritus Psychiatric/Neurological: See HPI; Denies Headache Reviewed Test Results Reviewed Test Results Lab Laboratory Tests Test 04/05/21 19:12 04/05/21 19:22 04/05/21 19:24 04/06/21 12:15 Range/Units White Blood Count 11.0 4.3-11.0 10^3/uL Red Blood Count 3.86 L 4.35-5.85 10^6/uL Hemoglobin 11.8 11.5-16.0 G/DL Hematocrit 37 35-52 % Mean Corpuscular Volume 97 80-99 FL Mean Corpuscular Hemoglobin 31 25-34 PG Mean Corpuscular Hemoglobin Concent 32 32-36 G/DL Red Cell Distribution Width 14.5 10.0-14.5 % Platelet Count 287 130-400 10^3/uL Mean Platelet Volume 10.5 H 7.4-10.4 FL Immature Granulocyte % (Auto) 0 % Neutrophils (%) (Auto) 60 42-75 % Lymphocytes (%) (Auto) 26 12-44 % Monocytes (%) (Auto) 12 0-12 % Eosinophils (%) (Auto) 1 0-10 % Basophils (%) (Auto) 1 0-10 % Neutrophils # (Auto) 6.6 1.8-7.8 X 10^3 Lymphocytes # (Auto) 2.9 1.0-4.0 X 10^3 Monocytes # (Auto) 1.3 H 0.0-1.0 X 10^3 Eosinophils # (Auto) 0.1 0.0-0.3 10^3/uL Basophils # (Auto) 0.1 0.0-0.1 10^3/uL Immature Granulocyte # (Auto) 0.0 0.0-0.1 10^3/uL Percent Immature Platelet Fraction 2.8 0.0-7.6 % Prothrombin Time 13.9 12.2-14.7 SEC INR Comment 1.0 0.8-1.4 Activated Partial Thromboplast Time 29 24-35 SEC D-Dimer 2.12 H 0.00-0.49 UG/ML Sodium Level 142 135-145 MMOL/L Potassium Level 3.7 3.6-5.0 MMOL/L Chloride Level 103 98-107 MMOL/L Carbon Dioxide Level 25 21-32 MMOL/L Anion Gap 14 5-14 MMOL/L Blood Urea Nitrogen 18 7-18 MG/DL Creatinine 1.21 0.60-1.30 MG/DL Estimat Glomerular Filtration Rate 44 BUN/Creatinine Ratio 15 Glucose Level 74 70-105 MG/DL Calcium Level 9.3 8.5-10.1 MG/DL Corrected Calcium 9.2 8.5-10.1 MG/DL Total Bilirubin 0.3 0.1-1.0 MG/DL Aspartate Amino Transf (AST/SGOT) 21 5-34 U/L Alanine Aminotransferase (ALT/SGPT) 15 0-55 U/L Alkaline Phosphatase 71 40-136 U/L Pro-B-Type Natriuretic Peptide 6812.0 H <75.0 PG/ML Total Protein 6.9 6.4-8.2 GM/DL Albumin 4.1 3.2-4.5 GM/DL Urine Color YELLOW Urine Clarity CLEAR Urine pH 6.0 5-9 Urine Specific Collins 1.010 L 1.016-1.022 Urine Protein 2+ H NEGATIVE Urine Glucose (UA) NEGATIVE NEGATIVE Urine Ketones NEGATIVE NEGATIVE Urine Nitrite NEGATIVE NEGATIVE Urine Bilirubin NEGATIVE NEGATIVE Urine Urobilinogen 0.2 < = 1.0 MG/DL Urine Leukocyte Esterase NEGATIVE NEGATIVE Urine RBC (Auto) NEGATIVE NEGATIVE Urine RBC NONE /HPF Urine WBC 0-2 /HPF Urine Squamous Epithelial Cells RARE /HPF Urine Crystals NONE /LPF Urine Bacteria NEGATIVE /HPF Urine Casts NONE /LPF Urine Mucus NEGATIVE /LPF Urine Culture Indicated NO Lactic Acid Level 1.88 0.50-2.00 MMOL/L Physical Exam Physical Exam Vital Signs Vital Signs - First Documented 04/05/21 04/05/21 18:59 21:56 Temp 36.5 Pulse 70 Resp 18 B/P (MAP) 157/68 (97) Pulse Ox 99 O2 Delivery Room Air Capillary Refill : Less Than 3 Seconds Height, Weight, BMI Height: '" Weight: lbs. oz. kg; 32.60 BMI Method: General Appearance: No Apparent Distress, WD/WN Eyes: Bilateral Eye PERRL, Bilateral Eye EOMI HEENT: PERRL/EOMI Neck: Non Tender, Supple Respiratory: Chest Non Tender, Lungs Clear, Decreased Breath Sounds Cardiovascular: Regular Rate, Rhythm; No No Murmur; Gallop/S3 Gastrointestinal: Normal Bowel Sounds, Abnormal Bowel Sounds, Distended, Tenderness Back: Normal Inspection, No CVA Tenderness, No Vertebral Tenderness Extremity: No No Pedal Edema; Pedal Edema, Swelling Neurologic/Psychiatric: Alert, Oriented x3 Skin: Normal Color, Warm/Dry Lymphatic: No Adenopathy A/P-Cardiology Admission Diagnosis Chest pain Shortness of breath Congestive heart failure Coronary artery disease Assessment/Plan Shortness of breath, chest pain, worsening over the past few weeks. Progressive pedal edema. Planning to evaluate Lexiscan stress test and started on aspirin and Lasix. I will add Lovenox after paracentesis Ascites, hepatic cirrhosis, unknown etiology. For possible paracentesis. Managed by primary care team Congestive heart failure, acute left ventricular systolic dysfunction, evaluate 2D echo Coronary artery disease, history of stenting in the remote past, reporting having a stress test done about 5 years ago and did not require any cardiac catheterization at that time. Hypertension, restart home medication monitor blood pressure Hyperlipidemia, monitor lipids SHREYAS HARRISON MD Apr 06, 2021 12:43
[2021-04-06] MEDS ORDERED: POTA2TAB5 PO (13:28)
[2021-04-06] MEDS ORDERED: ALPR0.254 PO (13:28)
[2021-04-06] MEDS ORDERED: LEVO25TA5 PO (13:28)
[2021-04-06] MEDS ORDERED: PIOG15TA67 PO (13:28)
[2021-04-06] MEDS ORDERED: FURO40TA4 PO (13:28)
[2021-04-06] MEDS ORDERED: FLUT1DIS26 INH (13:28)
[2021-04-06] MEDS ORDERED: COLC0.6T59 PO (13:28)
[2021-04-06] MEDS ORDERED: VENL150C98 PO (13:28)
[2021-04-06] MEDS ORDERED: CHOL100048 PO (13:28)
[2021-04-06] MEDS ORDERED: FEXO180T84 PO (13:28)
[2021-04-06] MEDS ORDERED: NABU-95 PO (13:28)
[2021-04-06] MEDS ORDERED: FLUT16SP22 NSEACH (13:28)
[2021-04-06] MEDS ORDERED: LISI20TA26 PO (13:28)
[2021-04-06] MEDS ORDERED: MTP100TCR PO (13:28)
[2021-04-06] MEDS ORDERED: SEMA0.25 SC (13:28)
[2021-04-06] MEDS ORDERED: ASPI-999 PO (13:28)
[2021-04-06] MEDS ORDERED: PANT40TA52 PO (13:28)
[2021-04-06] MEDS ORDERED: METH18TA20 PO (13:28)
[2021-04-06] MEDS ORDERED: GABA300C PO (13:28)
--- NOTE | 2021-04-06 13:30 | CONSULTATION REPORT ---
DATE OF SERVICE: ATTENDING PRIMARY CARE PHYSICIAN: Dr. Wagner Light. ADMITTING PHYSICIAN: Dr. Castillo. HISTORY OF PRESENT ILLNESS: The patient is a 65-year-old female who presented to the Emergency Department with bilateral lower extremity edema and pain as well as abdominal distention. She does have significant history of coronary artery disease and has had a previous myocardial infarction and multiple stents placed. She states that she has felt her lower extremities have swollen and she has become much more week. A CT scan was performed, which did show ascites present. There is also likely some component of liver cirrhosis as well. PAST MEDICAL HISTORY: COPD, hypertension, coronary artery disease, diabetes. PAST SURGICAL HISTORY: Appendectomy, laparoscopic cholecystectomy, cardiac catheterization and stent placement. ALLERGIES: No known drug allergies. MEDICATIONS: Augmentin, diclofenac, oxycodone. SOCIAL HISTORY: Previous smoke, 40 pack years. Negative alcohol. FAMILY HISTORY: Noncontributory. VITAL SIGNS: Temperature 36.7, blood pressure 133/74, pulse 60, respirations 20, pulse is 100% on room air. REVIEW OF SYSTEMS: This is a well-nourished female, currently in no acute distress. She is not experiencing any shortness of breath or difficulty breathing. No chest pain, palpitations, diaphoresis. She does have some exertional shortness of breath. No new cough or sputum production. No chest pain, palpitations, diaphoresis. No nausea, vomiting, has history of constipation, no red blood per rectum, no dark tarry stools. No fever, chills, no recent inadvertent weight loss. All other review of systems negative. PHYSICAL EXAMINATION: CHEST: Distant breath sounds and scattered wheezes bilaterally. HEART: Regular, no murmurs. EXTREMITIES: +2/3 bilateral lower extremity edema, negative Homans sign. HEENT: No scleral icterus. NECK: No cervical lymphadenopathy. ABDOMEN: Soft with a moderate distention and a positive fluid shift wave. No abdominal pain. No hernias. SKIN: Warm, dry. LABORATORY DATA: WBC 11.0, hemoglobin 11.8, hematocrit 37, platelets 287, albumin 4.1, total bilirubin 0.3. INR 1.0. ASSESSMENT AND PLAN: A 65-year-old female with bilateral lower extremity edema as well as abdominal distention and ascites. It appears that she does have a newly diagnosed liver cirrhosis, ascites as well as bilateral lower extremity edema. This appears to be early with a Child-Dang score of 4, which would be A classification. We will proceed with diagnostic as well as therapeutic paracentesis. Job ID: [id number] DocumentID: [id number] Dictated Date: 04/06/2021 13:10:22 Licensed Esthetician Date: 04/06/2021 13:29:56 Dictated By: ROM MARLEY MD MTDD
--- NOTE | 2021-04-06 14:21 | Diagnostic Imaging Report ---
INDICATION: Ascites, cirrhotic liver. TECHNIQUE: Multiple grayscale sonographic images were obtained of the right upper quadrant of the abdomen. CORRELATION STUDY: CT 04/05/2021 FINDINGS: LIVER: Liver length approximately 18 cm. There is a heterogeneous, somewhat nodular appearance of the liver compatible with underlying chronic liver disease. There is normal, hepatopedal direction of flow within the main portal vein. GALLBLADDER: Cholecystectomy. COMMON BILE DUCT: Nondilated at 0.5 cm. PANCREAS: Largely obscured by overlying bowel gas. AORTA/IVC: Not well visualized. RIGHT KIDNEY: 10.9 x 4.7 x 5.3 cm. No hydronephrosis. OTHER: There is presence of mild to moderate volume ascites in all 4 quadrants. IMPRESSION: 1. Cirrhotic morphology liver. 2. Mild/moderate ascites. Dictated by: Dictated on workstation # [id number]
[2021-04-06 15:36] VITALS: BP 138/63
[2021-04-06] MEDS: FUROSEMIDE 40 MG/4 ML INJ (LASIX) IVP SCH (16:12)
--- OUTSIDE RECORDS SUMMARY | 2021-04-06 17:29 | XMS REPORT | Clinical Summary ---
Author Author [facility] Organization [facility] Address Unknown Phone Unavailable Care Team Providers Care Electrolysis Needle Operator Name Role Phone Nik Saha MD Unavailable Wagner Light MD PCP Source Comments Some departments are not documenting in the electronic medical record. If you d o not see the information that you expected, contact Release of Information in [facility] Information Management department at [phone] for further assistan ce in locating additional records.[facility] Allergies Comments Active Allergy Reactions Severity Noted Date Adhesive Tape-Silicones RASH 07/07/2014 Latex UNKNOWN 07/07/2014 Medications End Date Status Medication Sig Dispensed Refills Start Date Active nabumetone (RELAFEN) 750 Take 750 mg 0 mg tablet by mouth twice daily. Active levothyroxine (SYNTHROID) Take 25 mcg 0 25 mcg tablet by mouth daily. Active ezetimibe (ZETIA) 10 mg Take 10 mg by 0 tablet mouth daily. Active metoprolol XL (TOPROL XL) Take 50 mg by 0 50 mg tablet mouth daily. Active gabapentin (NEURONTIN) Take 300 mg 0 300 mg capsule by mouth three times daily. Active potassium chloride SR Take 10 mEq 0 (K-DUR) 10 mEq tablet by mouth daily. Active fluticasone-salmeterol Inhale 1 Puff 0 (ADVAIR DISKUS) 250-50 by mouth mcg inhalation disk every 12 hours. Active albuterol (VENTOLIN HFA, Inhale 2 0 PROAIR HFA) 90 Puffs by mcg/actuation inhaler mouth every 6 hours as needed. Active BLOOD SUGAR DIAGNOSTIC Use as 0 MISC directed. Active Calcium-Cholecalciferol Take by 0 (D3) 600 mg(1,500mg) -400 mouth. unit cap Active nitroglycerin (NITROSTAT) Place 0.3 mg 0 0.3 mg tablet under tongue every 5 minutes as needed for Chest Pain. Active ALPRAZolam (XANAX) 0.25 Take 1 tablet 0 mg tablet by mouth at 8 bedtime as needed for Anxiety. Active aspirin EC 81 mg tablet Take 1 tablet 90 tablet 3 by mouth 8 daily. Take with food. Active pantoprazole DR Take 1 tablet 90 tablet 3 10/13/19 1 (PROTONIX) 40 mg tablet by mouth 8 daily. Active colchicine 0.6 mg tablet Take 1 tablet 90 tablet 3 by mouth 8 twice daily. Active rosuvastatin (CRESTOR) 40 Take one 90 tablet 0 03/25/202 mg tablet tablet by 0 mouth daily. Active lisinopriL (ZESTRIL) 20 Take one 90 tablet 3 202 mg tablet tablet by 0 mouth daily. Active lisinopriL-hydrochlorothi TAKE 2 180 tablet 2 azide (ZESTORETIC) TABLETS BY 0 20-12.5 mg tablet MOUTH DAILY Active Problems Problem Noted Date Hypercholesterolemia 10/13/2017 Precordial pain 10/13/2017 Left ventricular aneurysm 10/13/2017 Pulmonary infiltrate present on computed tomography 12/26/2016 Short of breath on exertion 12/26/2016 Diabetes mellitus 07/18/2014 Coronary artery disease involving [place] coronary art blay[place] of [place] heart 07/18/2014 without angina pectoris Overview: Formatting of this note might be differ ent from the original. 1998 [place] 82 [place] patient had [place]oplasty. Records have been los t Patient lost to cardiology follow-up 09/2017 referred to cardiology for e vidence of LV aneurysm on CT chest Echo: EF 50%, apical dyskinesis consist ent with aneurysm, valves normal, right ventricle normal, LAE, ao rtic root normal Regaden thallium EF 46% LV 113 mL exten sive scar without ischemia in inferior apex CHF (congestive heart failure) 07/18/2014 Hypothyroidism 07/18/2014 Glaucoma 07/18/2014 Fibromyalgia 07/18/2014 Encounters Care Team Description Date Type Specialty Reba Angela MA Lab Request (PCP Self) 01/07/2021 Documentation Cardiology from Last 3 Months Surgical History Surgery Date Site/Laterality Comments ROTATOR CUFF REPAIR left CHOLECYSTECTOMY APPENDECTOMY LUMBAR DISKECTOMY HYSTERECTOMY, TOTAL ABDOMINAL Medical History Medical History Date Comments Hypertension Diabetes mellitus (HCC) Osteoarthritis Hyperlipidemia CAD (coronary artery disease) s/p stent Family History Medical History Relation Name Comments Cancer Father Coronary Artery Disease Father Heart Attack Father Cancer Mother Hypertension Mother Cancer Sister Relation Name Status Comments Father Mother Sister Social History Date Tobacco Use Types Packs/Day Years Used 12/26/1982 - 07/18/2013 Former Smoker Cigarettes 1.5 30 Smokeless Tobacco: Never Used Drinks/Week oz/Week Comments Alcohol Use 0 Standard drinks or equivalent 0.0 No Sex Assigned at Date Recorded Not on file Last Filed Vital Signs Reading Time Taken Comments Vital Sign 120/70 03/25/2020 4:53 PM CDT Blood Pressure 65 03/25/2020 2:06 PM CDT Pulse 36.6 C (97.9 F) 07/31/2017 3:49 PM 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 MANAGER Temperature 16 07/31/2017 3:49 PM CAMPGROUND MANAGER Respiratory Rate 97% 07/31/2017 3:49 PM CAMPGROUND MANAGER Oxygen Saturation - - Inhaled Oxygen Concentration 73.6 kg (162 lb 4.8 oz) 03/25/2020 4:53 PM CDT Weight 162.6 cm (5' 4") 03/25/2020 4:53 PM CDT Height 27.86 03/25/2020 4:53 PM CDT Body Mass Index Plan of Treatment Health Maintenance Due Date Last Done Comments MEDICARE ANNUAL WELLNESS 1955 VISIT PNEUMONIA (PPSV23) 11/28/1959 VACCINE (1 of 2 - PPSV23) DILATED EYE EXAM 11/28/1971 DTAP/TDAP VACCINES (1 - 11/28/1971 Tdap) FOOT EXAM 11/28/1971 HBA1C 11/28/1971 PHYSICAL (COMPREHENSIVE) 11/28/1971 EXAM BREAST CANCER SCREENING 1993 COLORECTAL CANCER 11/28/2003 SCREENING SHINGLES RECOMBINANT 01/31/2018 12/06/2017 VACCINE (2 of 2) OSTEOPOROSIS 2018 SCREENING/MONITORING INFLUENZA VACCINE 05/28/2021 06/05/2019 HEPATITIS C SCREENING Completed 07/18/2014 Results Not on filefrom Last 3 Months Insurance Type Payer Benefit Subscriber ID Effective Phone Address Plan / Dates Group Medicare AETNA MEDICARE AETNA [id number] 2019-P MEDIC[place] [id number] 2013- MEDICAID Present [phone] Advance Directives 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
[2021-04-06] MEDS: ALPRAZolam 0.25 MG (XANAX) TAB PO SCH (20:48)
[2021-04-06] MEDS: PANTOPRAZOLE 40 MG (PROTONIX) TAB PO SCH (20:49)
[2021-04-06] MEDS: meTOprolol SUCCINATE 100 MG (TOPROL XL) TAB PO SCH (20:49)
[2021-04-06] MEDS: COLCHICINE 0.6 MG (COLCRYS) TABLET PO SCH (20:50)
[2021-04-06] MEDS: LORATADINE (CLARITIN) 10 MG TAB PO SCH (20:50)
[2021-04-06] MEDS: VENlafaxine XR 75 MG (EFFEXOR XR) CAP PO SCH (20:50)
[2021-04-06] MEDS: GABAPENTIN 300 MG (NEURONTIN) CAP PO SCH (20:51)
[2021-04-06] MEDS: FLUTICASONE NASAL SPRAY (FLONASE) 16 GM BTL NS SCH (20:53)
[2021-04-06] MEDS ORDERED: NON-FORMULARY MEDICATION 1 EA EA (Fluticasone/Salmeterol (Advair 250-50 Diskus) 1 PUFF) INH SCH (21:00)
[2021-04-06] MEDS ORDERED: NON-FORMULARY MEDICATION 1 EA EA (Nabumetone 750 MG) PO SCH (21:00)
[2021-04-06] MEDS ORDERED: NON-FORMULARY MEDICATION 1 EA EA (Venlafaxine HCl (Venlafaxine HCl ER) 150 MG) PO SCH (21:00)
[2021-04-06] MEDS ORDERED: NON-FORMULARY MEDICATION 1 EA EA (Fexofenadine HCl (Allegra Allergy) 180 MG) PO SCH (21:00)
[2021-04-06] MEDS ORDERED: ASPIRIN 81 MG CHEW (CHILDREN'S ASA) PO SCH (21:00)
[2021-04-06] MEDS: RT--FLUTICASONE/SALMETEROL 113-14 (AIRDUO RespiCLICK) IH SCH (21:29)
[2021-04-06 22:26] VITALS: BP 131/64
[2021-04-07] VITALS (14 sets, daily range): BP systolic 111–144; BP diastolic 59–78
[2021-04-07 05:25] LABS: BASOPHILS % (AUTO) 0 % (0-10); EOSINOPHILS # (AUTO) 0.1 10^3/uL (0.0-0.3); EOSINOPHILS % (AUTO) 1 % (0-10); HEMATOCRIT 36 % (35-52); HEMOGLOBIN 10.8 g/dL (11.5-16.0); LYMPHOCYTES # (AUTO) 2.1 10^3/uL (1.0-4.0); LYMPHOCYTES % (AUTO) 29 % (12-44); MEAN CORPUSCULAR HEMOGLOBIN 31 pg (25-34); MEAN CORPUSCULAR HGB CONC 30 g/dL (32-36); MEAN CORPUSCULAR VOLUME 102 fL (80-99); MEAN PLATELET VOLUME 10.5 fL (9.0-12.2); MONOCYTES # (AUTO) 0.8 10^3/uL (0.0-1.0); MONOCYTES % (AUTO) 12 % (0-12); NEUTROPHILS % (AUTO) 57 % (42-75); PLATELET COUNT 205 10^3/uL (130-400)
[2021-04-07 05:39] LABS: ALBUMIN 3.3 GM/DL (3.2-4.5); CHLORIDE 107 MMOL/L (98-107); POTASSIUM 3.3 MMOL/L (3.6-5.0); SODIUM 143 MMOL/L (135-145)
[2021-04-07 05:40] LABS: CALCIUM 8.4 MG/DL (8.5-10.1)
[2021-04-07 05:41] LABS: GLUCOSE 91 MG/DL (70-105); TOTAL PROTEIN 5.9 GM/DL (6.4-8.2); TRIGLYCERIDES 74 MG/DL (<150); VLDL CHOLESTEROL 15 MG/DL (5-40)
[2021-04-07 05:42] LABS: CARBON DIOXIDE 23 MMOL/L (21-32)
[2021-04-07 05:43] LABS: BILIRUBIN,TOTAL 0.5 MG/DL (0.1-1.0)
[2021-04-07 05:45] LABS: ALKALINE PHOSPHATASE 46 U/L (40-136); CREATININE SERUM 0.85 MG/DL (0.60-1.30); GFR ESTIMATED 67
[2021-04-07 05:46] LABS: BUN/CREATININE RATIO 21; CHOLESTEROL 118 MG/DL (< 200)
[2021-04-07 05:47] LABS: HDL CHOLESTEROL 38 MG/DL (40-60)
[2021-04-07 05:48] LABS: ALANINE AMINOTRANSFERASE 12 U/L (0-55)
[2021-04-07] MEDS: FUROSEMIDE 40 MG/4 ML INJ (LASIX) IVP SCH ×2 (05:57→16:55)
[2021-04-07] MEDS: LEVOTHYROXINE 25 MCG (LEVOTHROID) TAB PO SCH (05:57)
[2021-04-07] MEDS: CATHETER FLUSH 10 ML SYR IV SCH ×3 (06:09→20:10)
[2021-04-07] MEDS ORDERED: FUROSEMIDE 40 MG (LASIX) TAB PO SCH (07:00)
[2021-04-07] MEDS: RT--FLUTICASONE/SALMETEROL 113-14 (AIRDUO RespiCLICK) IH SCH ×2 (07:51→20:42)
--- NOTE | 2021-04-07 08:46 | Diagnostic Imaging Report ---
INDICATION: Ascites. FINDINGS: Evaluation of the right and left upper and lower quadrants was performed. Images demonstrate moderate abdominal ascites. The right lower quadrant does show the largest pocket. This was marked on the patient's skin for performance of a paracentesis by Dr. Newby. IMPRESSION: Moderate ascites. Marking was provided for Dr. Newby for performance of paracentesis. Dictated by: Dictated on workstation # [id number]
[2021-04-07] MEDS ORDERED: NON-FORMULARY MEDICATION 1 EA EA (Cholecalciferol (Vitamin D3) (Vitamin D3) 25 MCG) PO SCH (09:00)
[2021-04-07] MEDS: KCL 20 MEQ TAB (K-DUR) PO SCH (09:33)
[2021-04-07] MEDS: COLCHICINE 0.6 MG (COLCRYS) TABLET PO SCH ×2 (09:33→20:12)
[2021-04-07] MEDS: GABAPENTIN 300 MG (NEURONTIN) CAP PO SCH ×2 (09:33→20:11)
[2021-04-07] MEDS: meTOprolol SUCCINATE 100 MG (TOPROL XL) TAB PO SCH ×2 (09:33→20:11)
[2021-04-07] MEDS: lisINopril 20 MG (PRINIVIL) TABLET PO SCH (09:33)
[2021-04-07] MEDS: ASPIRIN E.C. 81 MG (ECOTRIN) TAB PO SCH (09:33)
[2021-04-07] MEDS: SPIRONOLACTONE 25 MG (ALDACTONE) TAB PO SCH ×2 (09:33→20:11)
[2021-04-07] MEDS: VITAMIN D3 25 MCG (1,000 UNITS) TABLET PO SCH (09:33)
[2021-04-07] MEDS: IBUPROFEN 600 MG (MOTRIN) TAB PO SCH ×2 (09:33→17:26)
[2021-04-07] MEDS: FLUTICASONE NASAL SPRAY (FLONASE) 16 GM BTL NS SCH ×2 (09:34→20:12)
[2021-04-07] MEDS ORDERED: REGADENOSON 0.4 MG/5 ML SYR (LEXISCAN) IV ONE (11:07)
--- NOTE | 2021-04-07 12:23 | Cardiology Stress Test Report ---
Stress Test Report Date of Procedure/Referring: Date of Procedure: Apr 07, 2021 PCP Niecy Castillo DO Admitting Physician Wagner Light MD Indications: CHF Baseline Heart Rate: 61 Baseline Blood Pressure: Blood Pressure Systolic: 144 Blood Pressure Diastolic: 67 Baseline Vitals Vital Signs Date Time Temp Pulse Resp B/P (MAP) Pulse Ox O2 Delivery O2 Flow Rate FiO2 04/05/21 18:59 36.5 70 18 157/68 (97) 99 04/05/21 21:56 Room Air Baseline EKG: Baseline EKG: NSR, LBBB Summary After explaining the procedure to the patient, she signed a consent and then brought to the stress nuclear laboratory. Patient received 0.4 mg Lexiscan for stress test, ECG, heart rate and blood pressure were monitored continuously. Resting and stress dose of radio tracer were injected, imaging was acquired and reviewed in short axis, horizontal long axis and vertical long axis views. TID: 1.12 SSS: 20 SDS: 9 EF: 37 1. Patient tolerated Lexiscan well 2. Decreased uptake involving the whole anterior wall anterior apex and inferoapical and anterolateral wall with mild reversibility at the basal to mid anterior wall the rest of the left ventricle has a fixed defect 3. Dilated left ventricle with apical akinesia, diffuse left ventricular hypokinesia, ejection fraction 37% SHREYAS HARRISON MD Apr 07, 2021 12:23
--- NOTE | 2021-04-07 13:05 | Progress Note - Hospitalist ---
ELISA BAUTISTA 04/07/21 1305: Subjective HPI/CC On Admission Date Seen by Provider: Apr 07, 2021 Time Seen by Provider: 09:00 CC: Swelling with abdominal distention HPI: This is a 65yoWF history of BUI who presents with abdominal swelling and lower edema. She was found to have cirrhosis on CT scan. Abdominal ultrasound will be obtained but likely BUI has gone to in-stage liver disease. She will be placed on Lasix and Aldactone. She has a history of CAD and multiple MIs and stents in the past so cardiology Dr. García will be consulted. 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 Subjective/Events-last exam Pt LE swelling seems to be much reduced along with her abdominal distention. Pt denies any pain, fever, vomiting, diarrhea, or chills. She's been walking fine and her last bowel movement was last night. 2D echo shows 35-40% EF. Follow up with cardiology for a stress test and results with left ventricle hypokinesic and dilated. Review of Systems General: No Chills, No Fatigue, No Appetite HEENT: No Visual Changes, No Eye Pain, No Ear Pain, No Sore Throat Pulmonary: No Dyspnea, No Cough Cardiovascular: No: Chest Pain, Palpitations Gastrointestinal: No: Nausea, Vomiting, Abdominal Pain, Diarrhea Genitourinary: No Dysuria, No Incontinence, No Hematuria Musculoskeletal: No: neck pain, arm pain, leg pain Neurological: No: Weakness, Numbness Focused Exam Lactate Level 04/05/21 19:24: Lactic Acid Level 1.88 Objective Exam Vital Signs Vital Signs Date Time Temp Pulse Resp B/P (MAP) Pulse Ox O2 Delivery O2 Flow Rate FiO2 04/07/21 12:15 36.8 66 20 144/67 (92) 96 Room Air Capillary Refill : Less Than 3 Seconds General Appearance: No Apparent Distress, WD/WN HEENT: PERRL/EOMI Neck: Normal Inspection, Non Tender, Supple Respiratory: Chest Non Tender, Lungs Clear, Normal Breath Sounds Cardiovascular: Regular Rate, Rhythm Gastrointestinal: Normal Bowel Sounds, Non Tender, Soft; No Distended, No Guarding Back: Normal Inspection, No Vertebral Tenderness Extremity: Non Tender, No Calf Tenderness Neurologic/Psychiatric: Alert, Oriented x3, No Motor/Sensory Deficits, Normal Mood/Affect Skin: Warm/Dry, Erythema Results/Procedures Lab Laboratory Tests 04/07/21 04:30 04/07/21 05:05 Patient resulted labs reviewed. Assessment/Plan Assessment and Plan Assess & Plan/Chief Complaint Ascites secondary to liver cirrhosis - Resolved Congestive heart failure w/ acute left ventricular systolic dysfunction 2D Echo reveals 35-40% Echo Stress test shows dilated, hypokinesic left ventricle Consult Cardiology for further management BUI Await paracentesis results CAD with previous stents Cardiology Consult Previous Smoker NIECY ALCAZAR DO 04/08/21 0523: Subjective Subjective/Events-last exam Pt undergoes stress test today Troponin is negative TSH is normal Edema is much improved Appreciate Dr. García Echocardiogram shows systolic dysfunction of 35-40% Paracentesis will be done at noon Cardiac catheterization performed no intervention required Review of Systems Gastrointestinal: Abdominal Pain Objective Exam General Appearance: No Apparent Distress, WD/WN, Chronically ill Assessment/Plan Assessment and Plan Assess & Plan/Chief Complaint Assessment: Anasarca Cirrhosis on CT scan Congestive heart failure CAD previous stent Plan: Appreciate all consultants Supervisory-Addendum Brief Verification & Attestation Participated in pt care: history, MDM, physical Personally performed: exam, history, MDM, supervision of care Care discussed with: Medical Student Procedures: n/a Results interpretation: Verified all documentation Verification and Attestation of Medical Student E/M Service A medical student performed and documented this service in my presence. I reviewed and verified all information documented by the medical student and made modifications to such information, when appropriate. I personally performed the physical exam and medical decision making. Niecy Alcazar, Apr 08, 2021,05:21 ELISA BAUTISTA Apr 07, 2021 13:05 NIECY ALCAZAR DO Apr 08, 2021 05:23
[2021-04-07] MEDS ORDERED: NS IV 1000 ML 1,000 ML IV SCH (14:15)
--- NOTE | 2021-04-07 15:35 | Cardiology Progress Note ---
Subjective Date Seen by Provider: Apr 07, 2021 Time Seen by Provider: 15:33 Subjective/Events-last exam Patient was seen and evaluated at bedside, laying down comfortably, no new complaint Review of Systems General: No Chills, No Night Sweats; Fatigue; No Malaise, No Appetite, No Other HEENT: No Head Aches, No Visual Changes, No Eye Pain, No Ear Pain, No Dysphasia, No Sinus Congestion, No Post Nasal Drip, No Sore Throat, No Other Pulmonary: Dyspnea; No Cough, No Pleuritic Chest Pain, No Other Cardiovascular: No: Chest Pain, Palpitations, Orthopnea, Paroxysmal Noc. Dyspnea, Edema, Lt Headedness, Other Focused Exam Lactate Level 04/05/21 19:24: Lactic Acid Level 1.88 Objective-Cardiology Exam Last Set of Vital Signs Vital Signs 04/07/21 12:15 Temp 36.8 Pulse 66 Resp 20 B/P (MAP) 144/67 (92) Pulse Ox 96 O2 Delivery Room Air I&O Intake and Output 04/07/21 00:00 Intake Total 540 ml Output Total 2650 ml Balance -2110 ml Intake Oral 540 ml Output Urine Total 2650 ml # Voids 2 # Bowel Movements 1 General: Alert, Oriented X3, Cooperative HEENT: Atraumatic, PERRLA Neck: Supple, No JVD, No Thyromegaly Lungs: Clear to Auscultation, Normal Air Movement Heart: Normal S1, Normal S2, No Murmurs, Other (S3 present) Abdomen: Normal Bowel Sounds, Soft, No Tenderness, No Masses Extremities: No Clubbing, No Cyanosis, Normal Pulses, No Tenderness/Swelling, Other (Pedal edema) Skin: No Rashes, No Breakdown, No Significant Lesion Neuro: Normal Gait, Normal Speech, Strength at 5/5 X4 Ext, Normal Tone, Sensation Intact Psych/Mental Status: Mental Status NL, Mood NL Results Lab Laboratory Tests 04/07/21 04:30 04/07/21 05:05 A/P-Cardiology Admission Diagnosis Chest pain Shortness of breath Congestive heart failure Coronary artery disease Assessment/Plan Congestive heart failure, acute left ventricular systolic dysfunction, abnormal stress test suggestive of ischemia, planning to proceed with cardiac catheterization, started on diuretics, monitor tolerance and response Ascites, hepatic cirrhosis, unknown etiology. Evaluate hepatitis profile Coronary artery disease, history of stenting in the remote past, abnormal stress test with large infarcted anterior wall and apex with estefanía-infarct ischemia, planning to proceed with cardiac catheterization today Hypertension, restart home medication monitor blood pressure Hyperlipidemia, monitor lipids SHREYAS HARRISON MD Apr 07, 2021 15:35
--- NOTE | 2021-04-07 15:35 | Conscious Sedation/ASA ---
Conscious Sedation Pre-Proced Time 15:35 ASA Score 3 For ASA 3 and 4: Consider anesthesia and medical clearance. Also, for patients with a history of failed moderate sedation consider anesthesia. Airway Lungs Heart ASA score ASA 1: a normal healthy patient ASA 2: a patient with a mild systemic disease (mid diabetes, controlled hypertension, obesity x ASA 3: a patient with a severe systemic disease that limits activity (angina, COPD, prior Myocardial infarction) ASA 4: a patient with an incapacitating disease that is a constant threat to life (CHF, renal failure) ASA 5: a moribund patient not expected to survive 24 hrs. (ruptured aneurysm) ASA 6: a declared brain- patient whose organs are being harvested. For emergent operations, add the letter E after the classification Mallampati Classification Grade 3 Sedation Plan Analgesia, Amnesia, Plan communicated to team members, Discussed options with patient/fam, Discussed risks with patient/fam The patient is an appropriate candidate to undergo the planned procedure, sedation, and anesthesia. The patient immediately re-assessed prior to indication. SHREYAS HARRISON MD Apr 07, 2021 15:35
[2021-04-07] MEDS ORDERED: MIDAZOLAM 5 MG/5 ML (VERSED) VIAL ONE (16:47)
[2021-04-07] MEDS ORDERED: fentaNYL INJ 100 MCG/2 ML AMP ONE (16:49)
[2021-04-07] MEDS: VENlafaxine XR 75 MG (EFFEXOR XR) CAP PO SCH (17:26)
[2021-04-07] MEDS ORDERED: HEParin 1000 UNIT/ML (10ML VIAL) FOR BOLUS ONE (17:45)
[2021-04-07] MEDS ORDERED: NITRO DRIP 25000 MCG/D5W 250 ML IV ONE (17:45)
[2021-04-07] MEDS ORDERED: VERAPAMIL 5 MG/2 ML (CALAN) VIAL IV ONE (17:45)
[2021-04-07] MEDS ORDERED: NS IV 1000 ML 1,000 ML ONE (17:45)
--- NOTE | 2021-04-07 17:46 | Progress Note ---
Subjective Date Seen by a Provider: Apr 07, 2021 Time Seen by a Provider: 17:00 Subjective/Events-last exam doing well. no new abd distention. tolerating diet. Focused Exam Lactate Level 04/05/21 19:24: Lactic Acid Level 1.88 Objective Exam Vital Signs Date Time Temp Pulse Resp B/P (MAP) Pulse Ox O2 Delivery O2 Flow Rate FiO2 04/07/21 15:50 35.9 59 18 111/59 (76) 100 Room Air 04/07/21 12:15 36.8 66 20 144/67 (92) 96 Room Air 04/07/21 11:19 60 19 142/69 (93) 99 Room Air 04/07/21 08:00 Room Air 04/07/21 08:00 36.6 59 20 135/59 (84) 96 Room Air 04/07/21 07:52 96 Room Air 04/07/21 03:29 36.3 60 16 123/68 (86) 97 Room Air 04/06/21 22:26 36.4 72 16 131/64 (86) 97 Room Air 04/06/21 21:30 98 Room Air 04/06/21 20:45 Room Air I & O 04/07/21 07:00 Intake Total 640 ml Output Total 2875 ml Balance -2235 ml Capillary Refill : Less Than 3 Seconds General Appearance: No Apparent Distress HEENT: PERRL/EOMI Neck: Full Range of Motion Respiratory: Chest Non Tender, Lungs Clear Cardiovascular: Regular Rate, Rhythm Gastrointestinal: normal bowel sounds, non tender, soft Extremity: Normal Capillary Refill Neurologic/Psychiatric: Alert, Oriented x3 Skin: Normal Color Lymphatic: No Adenopathy Results Lab Laboratory Tests 04/07/21 04:30: Sodium Level 143, Potassium Level 3.3L, Chloride Level 107, Carbon Dioxide Level 23, Anion Gap 13, Blood Urea Nitrogen 18, Creatinine 0.85, Estimat Glomerular Filtration Rate 67, BUN/Creatinine Ratio 21, Glucose Level 91, Calcium Level 8.4L, Corrected Calcium 9.0, Total Bilirubin 0.5, Aspartate Amino Transf (AST/SGOT) 17, Alanine Aminotransferase (ALT/SGPT) 12, Alkaline Phosphatase 46, Troponin I < 0.028, Total Protein 5.9L, Albumin 3.3, Triglycerides Level 74, Cholesterol Level 118, LDL Cholesterol Direct 68, VLDL Cholesterol 15, HDL Cholesterol 38L, Thyroid Stimulating Hormone (TSH) 3.86 04/07/21 05:05: White Blood Count 7.0, Red Blood Count 3.50L, Hemoglobin 10.8L, Hematocrit 36, Mean Corpuscular Volume 102H, Mean Corpuscular Hemoglobin 31, Mean Corpuscular Hemoglobin Concent 30L, Red Cell Distribution Width 14.2, Platelet Count 205, Mean Platelet Volume 10.5, Immature Granulocyte % (Auto) 0, Neutrophils (%) (Auto) 57, Lymphocytes (%) (Auto) 29, Monocytes (%) (Auto) 12, Eosinophils (%) (Auto) 1, Basophils (%) (Auto) 0, Neutrophils # (Auto) 4.0, Lymphocytes # (Auto) 2.1, Monocytes # (Auto) 0.8, Eosinophils # (Auto) 0.1, Basophils # (Auto) 0.0, Immature Granulocyte # (Auto) 0.0, B-Type Natriuretic Peptide 1561.2H 04/07/21 13:34: SARS-CoV-2 RNA (RT-PCR) Not Detected Assessment/Plan Assessment/Plan Assess & Plan/Chief Complaint new onset ascites and liver cirrhosis. paracentesis today. ROM MARLEY MD Apr 07, 2021 17:45
--- NOTE | 2021-04-07 18:17 | Cardiac Cath Report ---
Cardiac Cath Report Physician (s)/Sap Basis (s) Physician SHREYAS HARRISON MD Pre-Procedure Diagnosis Pre-Procedure Diagnosis: Coronary artery disease, congestive heart failure Post-Procedure Note Procedure Start Date: Apr 07, 2021 Name of Procedure: Left heart catheterization Findings/Procedure Note PROCEDURE NOTE: 65-year-old lady with severe cardiomyopathy, ascites, liver failure, had an abnormal stress test, scheduled for cardiac catheterization possible PTCA. After explaining the procedure to the patient, all pros and cons were explained, all questions were answered. The patient signed the consent and then she was placed on the cardiac catheterization laboratory. Groin was prepped SL fashion local anesthesia was used. Sheath placed in the right radial artery, [place] catheter advanced to the left ventricular cavity, pressure was measured then intubated the right coronary artery and angiogram was done, nonselective angiogram of the left system was done, I elected to exchange the catheter and used FL 3.5 diagnostic cath 5F, advanced to the left system and multiple views were obtained and it was removed. At the end of the procedure the sheath was removed. Vascular band deployed FINDINGS: Hemodynamics LV 140/11, end-diastolic pressure of 11 Aorta 152/65 mean of 87 ANATOMY: Left Main is free of obstructive disease Left Anterior Descending has multiple overlapping stent at the proximal and mid LAD, appear to be patent with good flow distally mild to moderate disease distally Left Circumflex has mild disease nonobstructive disease Right Coronary Artery has mild to moderate disease nonobstructive disease LV Gram was not done, pressure was measured CONCLUSION: 1. Patent stent in the proximal and mid LAD with mild to moderate coronary artery disease nonobstructive disease 2. Normal left ventricular end-diastolic pressure DISCUSSION AND RECOMMENDATION: Medical therapy is recommended, abnormal stress test is probably due to an old myocardial infarction with scar tissue Anesthesia Type: Conscious Sedation Estimated blood loss (mL): 10 ml Contrast Amount: 49 ml Total Radiation Dose: 686 mGy Post-Procedure Diagnosis Post-operative diagnosis: Coronary artery disease Congestive heart failure Ascites Liver cirrhosis SHREYAS HARRISON MD Apr 07, 2021 18:17
[2021-04-07] MEDS: NS IV 1000 ML 1,000 ML IV SCH (18:48)
[2021-04-07] MEDS: PANTOPRAZOLE 40 MG (PROTONIX) TAB PO SCH (20:11)
[2021-04-07] MEDS: LORATADINE (CLARITIN) 10 MG TAB PO SCH (20:11)
[2021-04-07] MEDS: ALPRAZolam 0.25 MG (XANAX) TAB PO SCH (20:11)
[2021-04-07 21:54] LABS: HEPATITIS C ANTIBODY C Non-Reactive (Non-Reactive)
[2021-04-08 04:00] VITALS: BP 109/62
--- NOTE | 2021-04-08 04:19 | OPERATIVE REPORT ---
DATE OF SERVICE: 04/07/2021 ATTENDING PRIMARY CARE PHYSICIAN: Dr. Wagner Light. ADMITTING PHYSICIAN: Dr. Castillo. PREOPERATIVE DIAGNOSIS: Symptomatic ascites. POSTOPERATIVE DIAGNOSIS: Symptomatic ascites. PROCEDURE: Paracentesis. SURGEON: Rom Newby MD ANESTHESIA: Local. ESTIMATED BLOOD LOSS: Minimal. FINDINGS: Straw yellow transudative fluid. DISPOSITION: The patient tolerated the procedure well. INDICATIONS: The patient is a 65-year-old female who presented to the emergency department with bilateral lower extremity edema as well as abdominal distention. She has a significant history of coronary artery disease and has had previous myocardial infarction and multiple stents placed. She felt her lower extremities had a swollen and become worse and she also felt weakness. A CT scan was performed, which did show a significant amount of ascites present as well as a likely component of liver cirrhosis. DESCRIPTION OF PROCEDURE: The abdomen was prepped and draped in standard surgical fashion. Before this, an ultrasound was performed and marked along the right lower abdomen. A 1% lidocaine was then used to anesthetize the skin, subcutaneous tissue, muscle layers as well as the peritoneal lining. A vertical skin incision was made using a 15 blade. The catheter and trocar were then introduced withdrawing of straw yellow transudative fluid. The catheter was then advanced over the trocar without any resistance. The catheter was then connected to tubing and gravity drainage bag. The catheter was then covered with sterile gauze followed by Op-Site. The patient tolerated the procedure well. We will continue drainage for the next 24 hours until a significant amount of drain. She is less symptomatic and then removed the drain. The fluid was also be sent for fluid analysis as well as cytology and culture and sensitivity. Job ID: [id number] DocumentID: [id number] Dictated Date: 04/07/2021 17:59:16 Software Development Advisor Date: 04/08/2021 04:18:59 Dictated By: ROM NEWBY MD
[2021-04-08] MEDS: NS IV 1000 ML 1,000 ML IV SCH (05:07)
[2021-04-08] MEDS: CATHETER FLUSH 10 ML SYR IV SCH (06:01)
[2021-04-08] MEDS: FUROSEMIDE 40 MG/4 ML INJ (LASIX) IVP SCH (06:02)
[2021-04-08] MEDS: KCL 20 MEQ TAB (K-DUR) PO SCH (06:02)
[2021-04-08] MEDS: LEVOTHYROXINE 25 MCG (LEVOTHROID) TAB PO SCH (06:02)
[2021-04-08 06:44] LABS: BASOPHILS # (AUTO) 0.1 10^3/uL (0.0-0.1); BASOPHILS % (AUTO) 1 % (0-10); EOSINOPHILS # (AUTO) 0.1 10^3/uL (0.0-0.3); EOSINOPHILS % (AUTO) 2 % (0-10); HEMATOCRIT 36 % (35-52); HEMOGLOBIN 10.9 g/dL (11.5-16.0); LYMPHOCYTES # (AUTO) 2.4 10^3/uL (1.0-4.0); LYMPHOCYTES % (AUTO) 31 % (12-44); MEAN CORPUSCULAR HEMOGLOBIN 30 pg (25-34); MEAN CORPUSCULAR HGB CONC 31 g/dL (32-36); MEAN CORPUSCULAR VOLUME 98 fL (80-99); MEAN PLATELET VOLUME 10.6 fL (9.0-12.2); MONOCYTES % (AUTO) 12 % (0-12); NEUTROPHILS # (AUTO) 4.3 10^3/uL (1.8-7.8); NEUTROPHILS % (AUTO) 54 % (42-75); PLATELET COUNT 236 10^3/uL (130-400); WHITE BLOOD COUNT 7.9 10^3/uL (4.3-11.0)
[2021-04-08 06:57] LABS: ALBUMIN 3.2 GM/DL (3.2-4.5); POTASSIUM 3.5 MMOL/L (3.6-5.0)
[2021-04-08 06:58] LABS: CALCIUM 8.3 MG/DL (8.5-10.1)
[2021-04-08 06:59] LABS: TOTAL PROTEIN 5.7 GM/DL (6.4-8.2)
[2021-04-08 07:01] LABS: BILIRUBIN,TOTAL 0.3 MG/DL (0.1-1.0)
[2021-04-08 07:03] LABS: CREATININE SERUM 0.98 MG/DL (0.60-1.30)
[2021-04-08 08:10] VITALS: BP 119/70
[2021-04-08] MEDS: meTOprolol SUCCINATE 100 MG (TOPROL XL) TAB PO SCH (08:43)
[2021-04-08] MEDS: GABAPENTIN 300 MG (NEURONTIN) CAP PO SCH (08:43)
[2021-04-08] MEDS: COLCHICINE 0.6 MG (COLCRYS) TABLET PO SCH (08:43)
[2021-04-08] MEDS: IBUPROFEN 600 MG (MOTRIN) TAB PO SCH (08:43)
[2021-04-08] MEDS: SPIRONOLACTONE 25 MG (ALDACTONE) TAB PO SCH (08:43)
[2021-04-08] MEDS: VITAMIN D3 25 MCG (1,000 UNITS) TABLET PO SCH (08:43)
[2021-04-08] MEDS: ASPIRIN E.C. 81 MG (ECOTRIN) TAB PO SCH (08:43)
[2021-04-08] MEDS: lisINopril 20 MG (PRINIVIL) TABLET PO SCH (08:43)
[2021-04-08] MEDS: FLUTICASONE NASAL SPRAY (FLONASE) 16 GM BTL NS SCH (08:44)
--- NOTE | 2021-04-08 09:00 | Cardiology Progress Note ---
Subjective Date Seen by Provider: Apr 08, 2021 Time Seen by Provider: 08:50 Subjective/Events-last exam Patient is sitting up in chair, denies any chest pain or dyspnea. Review of Systems General: No Chills, No Night Sweats, No Fatigue, No Malaise, No Appetite, No Other HEENT: No Head Aches, No Visual Changes, No Eye Pain, No Ear Pain, No Dysphasia, No Sinus Congestion, No Post Nasal Drip, No Sore Throat, No Other Pulmonary: No Dyspnea, No Cough, No Pleuritic Chest Pain, No Other Cardiovascular: Edema; No: Chest Pain, Palpitations, Orthopnea, Paroxysmal Noc. Dyspnea, Lt Headedness, Other Focused Exam Lactate Level 04/05/21 19:24: Lactic Acid Level 1.88 Objective-Cardiology Exam Last Set of Vital Signs Vital Signs 04/08/21 12:05 Temp 36.5 Pulse 59 Resp 18 B/P (MAP) 117/70 (86) Pulse Ox 97 O2 Delivery Room Air I&O Intake and Output 04/08/21 00:00 Intake Total 810 ml Output Total 4775 ml Balance -3965 ml Intake Oral 810 ml Output Urine Total 2625 ml Drainage Total 2150 ml General: Alert, Oriented X3, Cooperative HEENT: Atraumatic, PERRLA Neck: Supple, No JVD, No Thyromegaly Lungs: Clear to Auscultation, Normal Air Movement Heart: Normal S1, Normal S2, No Murmurs, Other (S3 present) Abdomen: Normal Bowel Sounds, Soft, No Tenderness, No Masses Extremities: No Clubbing, No Cyanosis, Normal Pulses, No Tenderness/Swelling, Other (Pedal edema) Skin: No Rashes, No Breakdown, No Significant Lesion Neuro: Normal Gait, Normal Speech, Strength at 5/5 X4 Ext, Normal Tone, Sensation Intact Psych/Mental Status: Mental Status NL, Mood NL Results Lab Laboratory Tests 04/08/21 06:15 A/P-Cardiology Admission Diagnosis Chest pain Shortness of breath Congestive heart failure Coronary artery disease Assessment/Plan Congestive heart failure, acute left ventricular systolic dysfunction, maintained on beta blockers, TERA-I, lasix. I will change Lasix to oral Ascites, hepatic cirrhosis, unknown etiology. Hepatitis panel negative. Will need follow up with specialist as outpatient. Coronary artery disease, history of stenting in the remote past, underwent LHC yesterday after having an abnormal stress test showing patent stent in the proximal and mid LAD with mild to moderate coronary artery disease nonobstructive disease. Hypertension, controlled. 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 Patient was seen and evaluated with Ptaricia, examination performed, management plan was discussed, agree with the current scribed note, I made few changes to the note using Italic font Patient was seen at bedside, sitting comfortably, reporting improvement in her symptoms Cardiac catheterization findings were reviewed with the patient, patent stents in the LAD otherwise mild to moderate disease nonobstructive disease Continue on diuretics, monitor blood pressure and lipids Supervisory-Addendum Brief Supervisory Addendum Participated in pt care: history, MDM, physical Personally performed: exam, history, MDM Care discussed with: SANDY Results interpretation: Verified all documentation PATRICIA LEYVA Apr 08, 2021 09:00 SHREYAS HARRISON MD Apr 08, 2021 12:41
[2021-04-08] MEDS: RT--FLUTICASONE/SALMETEROL 113-14 (AIRDUO RespiCLICK) IH SCH (09:50)
[2021-04-08] MEDS ORDERED: SPIR25TA5 PO (11:31)
--- NOTE | 2021-04-08 11:31 | Discharge Summary ---
Discharge Summary Hospital Course Was the Problem List Reviewed?: Yes Problems/Dx: (1) Abdominal ascites Status: Acute Qualifiers: Qualified Codes: R18.8 - Other ascites (2) Cirrhosis of liver Status: Acute Qualifiers: Qualified Codes: K74.60 - Unspecified cirrhosis of liver; R18.8 - Other ascites (3) CHF (congestive heart failure) (4) CAD (coronary artery disease) (5) Abnormal stress test (6) S/P cardiac catheterization Hospital Course Date of Admission: Apr 05, 2021 at 22:36 Admission Diagnosis : Family Physician/Provider: Wagner Light MD Date of Discharge: 04/08/21 Discharge Diagnosis: CHF, cirrhosis, status post paracentesis, CAD, cardiac cath performed without intervention Hospital Course: Hospital Course: Pt had a lengthy observation hospital course due to new onset of ascites and CHF s/p stress test and cardiac cath which revealed no need for intervention. Stent was patent. Paracentesis performed, drain placed and drain for additional 24hrs and she was deemed stable for DC on Lasix and Sprironolactone and will have close follow up with her PCP. Labs and Pending Lab Test: Laboratory Tests 04/07/21 11:51: Hepatitis A IgM Antibody [Pending], Hepatitis B Surface Antigen [Pending], Hepatitis B Core IgM Antibody [Pending], Hepatitis C Antibody [Pending] 04/07/21 13:34: SARS-CoV-2 RNA (RT-PCR) Not Detected 04/08/21 06:15: White Blood Count 7.9, Red Blood Count 3.61L, Hemoglobin 10.9L, Hematocrit 36, Mean Corpuscular Volume 98, Mean Corpuscular Hemoglobin 30, Mean Corpuscular Hemoglobin Concent 31L, Red Cell Distribution Width 14.1, Platelet Count 236, Mean Platelet Volume 10.6, Immature Granulocyte % (Auto) 0, Neutrophils (%) (Auto) 54, Lymphocytes (%) (Auto) 31, Monocytes (%) (Auto) 12, Eosinophils (%) (Auto) 2, Basophils (%) (Auto) 1, Neutrophils # (Auto) 4.3, Lymphocytes # (Auto) 2.4, Monocytes # (Auto) 1.0, Eosinophils # (Auto) 0.1, Basophils # (Auto) 0.1, Immature Granulocyte # (Auto) 0.0, Sodium Level 143, Potassium Level 3.5L, Chloride Level 105, Carbon Dioxide Level 25, Anion Gap 13, Blood Urea Nitrogen 15, Creatinine 0.98, Estimat Glomerular Filtration Rate 57, BUN/Creatinine Ratio 15, Glucose Level 98, Calcium Level 8.3L, Corrected Calcium 8.9, Total Bilirubin 0.3, Aspartate Amino Transf (AST/SGOT) 16, Alanine Aminotransferase (ALT/SGPT) 11, Alkaline Phosphatase 52, Total Protein 5.7L, Albumin 3.2 Microbiology 04/07/21 MRSA Screen - Final, Complete MRSA not isolated Home Meds Active Spironolactone 25 Mg Tablet 25 Mg PO BID Reported Venlafaxine HCl ER (Venlafaxine HCl) 150 Mg Cap.er.24h 150 Mg PO HS LAST FILLED 12-15-2020 #90/90 DAY SUPPLY [facility] (Fexofenadine HCl) 180 Mg Tablet 180 Mg PO HS Aspirin 81 Mg Tab.chew 81 Mg PO HS Potassium Gluconate 90 Mg Tablet 90 Mg PO HS Vitamin D3 (Cholecalciferol (Vitamin D3)) 25 Mcg Capsule 25 Mcg PO DAILY Advair 250-50 Diskus (Fluticasone/Salmeterol) 1 Each Blst.w.dev 1 Puff INH BID Colchicine 0.6 Mg Tablet 0.6 Mg PO BID Pantoprazole Sodium 40 Mg Tablet.dr 40 Mg PO HS Fluticasone Propionate 16 Gm [place].susp 1-2 [place] NSEACH BID Neurontin (Gabapentin) 300 Mg Capsule 900 Mg PO BID TAKES 3 (300MG) CAPS Nabumetone 750 Mg Tablet 750 Mg PO BID Ozempic (Semaglutide) 0.25 Mg/0.2 Ml Pen.injctr 0.75 Mg SC SAT Pioglitazone HCl 15 Mg Tablet 15 Mg PO HS Metoprolol Succinate 100 Mg Tab.er.24h 50 Mg PO BID TAKES OF A 100MG TAB Methylphenidate ER (Methylphenidate HCl) 18 Mg Tab.er.24 18 Mg PO DAILY Levothyroxine Sodium 25 Mcg Tablet 25 Mcg PO DAILY ALPRAZolam 0.25 Mg Tablet 0.25 Mg PO HS Lisinopril 20 Mg Tablet 20 Mg PO DAILY Furosemide 40 Mg Tablet 40 Mg PO 0700,1300 Assessment/Pt Instructions [facility] in 1 week Discharge Planning: <30 minutes discharge planning Discharge Instructions Discharge Diet: Low Sodium Diet Discharge Physical Examination Vital Signs Vital Signs Date Time Temp Pulse Resp B/P (MAP) Pulse Ox O2 Delivery O2 Flow Rate FiO2 04/08/21 09:50 96 Room Air 04/08/21 08:10 36.5 58 18 119/70 (86) General Appearance: No Apparent Distress, WD/WN, Chronically ill Allergies: Coded Allergies: latex (Verified Allergy, Unknown, 04/07/21) irritation and burning sensation Discharge Summary Date of Admission Apr 05, 2021 at 22:36 Date of Discharge Discharge Date: Apr 08, 2021 Admission Diagnosis Assessment: Ascites likely due to BUI Congestive heart failure CAD Edema Plan: Diuresis Cardiology management Ultrasound Paracentesis Discharge Diagnosis Assessment: Anasarca Cirrhosis on CT scan Congestive heart failure CAD previous stent Plan: Appreciate all consultants (1) Abdominal ascites Status: Acute Qualifiers: Qualified Codes: R18.8 - Other ascites (2) Cirrhosis of liver Status: Acute Qualifiers: Qualified Codes: K74.60 - Unspecified cirrhosis of liver; R18.8 - Other ascites LIZZIE ALCAZAR DO Apr 08, 2021 11:31
[2021-04-08 11:58] LABS: TOTAL PROTEIN,BODY FLUID 3.2 G/DL
[2021-04-08 12:05] VITALS: BP 117/70
--- NOTE | 2021-04-08 17:34 | Progress Note ---
ELISA BAUTISTA 04/08/21 1734: Progress Note 65 F with PMH significant for CAD and similar episodes presented with abd/LE swelling secondary to liver cirrhosis onset 2 weeks ago for which the reason why she went to the hospital. In the hospital a chest xray showed negative findings, but abd CT confirmed ascites and cirrhotic liver and also cardiology was consulted upon findings of congestive heart failure and 2d echo was performed revealing 35-40% EF and stress test showed LV hypokinesia+dilation. Management included Lasix, Aldactone, and was on paracentesis drain for 24 hours before disconnecting drain upon discharge. Abdominal distention and leg swelling significantly reduced at the time of discharge. NIECY ALCAZAR DO 04/09/21 0538: Supervisory-Addendum Brief Verification & Attestation Participated in pt care: history, MDM, physical Personally performed: exam, history, MDM, supervision of care Care discussed with: Medical Student Procedures: n/a Results interpretation: Verified all documentation Verification and Attestation of Medical Student E/M Service A medical student performed and documented this service in my presence. I reviewed and verified all information documented by the medical student and made modifications to such information, when appropriate. I personally performed the physical exam and medical decision making. Niecy Alcazar Apr 09, 2021,05:38 ELISA BAUTISTA Apr 08, 2021 17:34 NIECY ALCAZAR DO Apr 09, 2021 05:38
--- OUTSIDE RECORDS SUMMARY | 2021-04-15 14:38 | XMS REPORT | Clinical Summary ---
Author Author [facility] Organization [facility] Address Unknown Phone Unavailable Care Team Providers Care Collar Turner Name Role Phone Nik Saha MD Unavailable Wagner Light MD PCP Source Comments Some departments are not documenting in the electronic medical record. If you d o not see the information that you expected, contact Release of Information in [facility] Information Management department at [phone] for further assistan ce in locating additional records.[facility] Allergies Comments Active Allergy Reactions Severity Noted [...] (CRESTOR) 40 Take one 90 tablet 0 mg tablet tablet by 0 mouth daily. Active lisinopriL-hydrochlorothi TAKE 2 180 tablet 2 azide (ZESTORETIC) TABLETS BY 0 20-12.5 mg tablet MOUTH DAILY Active lisinopriL (ZESTRIL) 20 TAKE ONE (1) 90 tablet 3 0 mg tablet TABLET BY 1 MOUTH ONCE DAILY 04/14/2021 Discontinued lisinopriL (ZESTRIL) 20 Take one 90 tablet 3 202 mg tablet tablet by 0 mouth daily. Active Problems Problem Noted Date Hypercholesterolemia 10/13/2017 [...] 1998 at age 82 anterior myocardial infa rction [place], [place] Per patient had angioplasty. Records have [...] Encounters Care Team Description Date Type Specialty Elif Bowles MD Medication Refill 04/14/2021 Refill Cardiology from Last 3 Months Surgical History [...] Cigarettes 1.5 30 Smokeless Tobacco: Never Used Comments Alcohol Use Standard Drinks/Week No 0 (1 standard drink = 0.6 o z pure alcohol) Sex Assigned at Date Recorded Not on file Last Filed Vital Signs Reading Time Taken Comments Vital Sign 120/70 03/25/2020 4:53 PM CDT Blood Pressure 65 03/25/2020 2:06 PM CDT Pulse 36.6 C (97.9 F) 07/31/2017 3:49 PM DATABASE MANAGEMENT SPECIALIST Temperature 16 07/31/2017 3:49 PM DATABASE MANAGEMENT SPECIALIST Respiratory Rate 97% 07/31/2017 3:49 PM DATABASE MANAGEMENT SPECIALIST Oxygen Saturation - - Inhaled Oxygen Concentration [...] 2) OSTEOPOROSIS 2018 SCREENING/MONITORING INFLUENZA VACCINE 05/28/2021 05/14/2020, 06/05/2019 HEPATITIS C SCREENING Completed 07/18/2014 Results Not on filefrom Last 3 Months Insurance Type Payer Benefit Subscriber ID Effective Phone Address Plan / Dates Group Medicare AETNA MEDICARE AETNA [id number] 2019-P MEDICARE resent HMO Medicaid [place] [id number] 2013- MEDICAID Present [phone] Advance Directives Patient Urgent Care Nurse Practitioner Explanation Type Date Recorded Advance 07/18/2014 12:58 PM Directive/DPOA
--- OUTSIDE RECORDS SUMMARY | 2021-04-15 14:38 | XMS REPORT | Encounter Summary ---
Author Author [facility] Organization [facility] Address Unknown Phone Unavailable Care Team Providers Care Berry Grower Name Role Phone Nik Saha MD Unavailable Wagner Light MD PCP Reason for Visit * Reason Comments Medication Refill Encounter Details Care Team Description Date Type Department Elif Bowles MD Cardiovascular Medicine [address] [address] [phone] Medication Refill 04/14/2021 Refill Cardiology: [facility] [address] [place] [address] Social History Date Tobacco Use Types Packs/Day Years Used 12/26/1982 - 07/18/2013 Former Smoker Cigarettes 1.5 30 Smokeless Tobacco: Never Used Comments Alcohol Use Standard Drinks/Week No 0 (1 standard drink = 0.6 o z pure alcohol) Sex Assigned at Date Recorded Not on file documented as of this encounter Ordered Prescriptions Start Date End Date Prescription Sig Dispensed Refills 04/14/2021 lisinopriL (ZESTRIL) 20 TAKE ONE (1) 90 tablet 3 mg tablet TABLET BY MOUTH ONCE DAILY documented in this encounter Miscellaneous Notes * Telephone Encounter - Sandra Mejía RN - 04/14/2021 1:10 PM CDT Received a request via computer from the patients pharmacy requesting a refill. Script e-scribed as requested. documented in this encounter Plan of Treatment Not on filedocumented as of this encounter Visit Diagnoses Not on filedocumented in this encounter Discontinued Medications Start Date End Date Medication Sig Discontinue Reason 03/25/2020 04/14/2021 lisinopriL (ZESTRIL) 20 Take one mg tablet tablet by mouth daily. documented as of this encounter Additional Health Concerns Assessment Noted Time A fall risk assessment has been completed for the pat ient 03/25/2020 2:06 PM CDT PHQ-2 Depression Total Score: 0 02/08/2018 1:50 PM CDT documented as of this encounter
== END 2021-04-08 13:10 | disposition home or self-care (01) ==
LOC: EDUNIT# 18:57 → ER FS 18:58 → 4TH 22:36 → UNDOADMOB 22:36 → 4TH 22:48 → UNDODISOB 04-08 13:20
PROVIDERS: ADMIT Internal Medicine; ATTEND Internal Medicine
DX: R18.8 Other ascites (principal); K74.60 Unspecified cirrhosis of liver; I11.0 Hypertensive heart disease with heart failure; I50.21 Acute systolic (congestive) heart failure; I25.10 Atherosclerotic heart disease of native coronary artery without angina pectoris; R94.39 Abnormal result of other cardiovascular function study; E11.9 Type 2 diabetes mellitus without complications; K75.81 Nonalcoholic steatohepatitis (NASH); E78.5 Hyperlipidemia, unspecified; J44.9 Chronic obstructive pulmonary disease, unspecified; Z79.82 Long term (current) use of aspirin; Z79.890 Hormone replacement therapy; Z79.899 Other long term (current) drug therapy; Z87.891 Personal history of nicotine dependence
CPT/HCPCS: 36415; 71045; 74177; 76705; 76942; 78452; 80053 ×3; 80061; 80074; 81000; 82945; 83605; 83880 ×2; 84157; 84443; 84484 ×2; 85025 ×3; 85379; 85610; 85730; 87070; 87081; 87205; 87636; 88112; 88305; 93005; 93017; 93306; 93458; 94640 ×3; 94760 ×2; 96374; 99284; A9502; C1894; G0378

== ENCOUNTER 2021-12-25 12:34 | Emergency (ER) | payer MEDICARE, MEDICAID ==
[~2021-12-25] VITALS: Ht 162.5 cm; Wt 85.7 kg
[~2021-12-25 12:34] MED LIST changes: +ALPR0.254 PO; +ASPI-999 PO; +CHOL100048 PO; +COLC0.6T59 PO; +FEXO180T84 PO; +FLUT16SP22 NSEACH; +FLUT1DIS26 INH; +FURO40TA4 PO; +GABA300C PO; +LEVO25TA5 PO; +LISI20TA26 PO; +METH18TA20 PO; +MTP100TCR PO; +NABU-95 PO; +PANT40TA52 PO; +PIOG15TA67 PO; +POTA2TAB5 PO; +SEMA0.25 SC; +SPIR25TA5 PO; +VENL150C98 PO
[2021-12-25 12:56] LABS: BASOPHILS % (AUTO) 1 % (0-10); EOSINOPHILS # (AUTO) 0.1 10^3/uL (0.0-0.3); EOSINOPHILS % (AUTO) 1 % (0-10); HEMATOCRIT 29 % (35-52); HEMOGLOBIN 9.4 g/dL (11.5-16.0); LYMPHOCYTES # (AUTO) 1.2 10^3/uL (1.0-4.0); LYMPHOCYTES % (AUTO) 17 % (12-44); MEAN CORPUSCULAR HEMOGLOBIN 32 pg (25-34); MEAN CORPUSCULAR HGB CONC 33 g/dL (32-36); MEAN CORPUSCULAR VOLUME 99 fL (80-99); MEAN PLATELET VOLUME 10.6 fL (9.0-12.2); MONOCYTES # (AUTO) 0.8 10^3/uL (0.0-1.0); MONOCYTES % (AUTO) 11 % (0-12); NEUTROPHILS # (AUTO) 4.9 10^3/uL (1.8-7.8); NEUTROPHILS % (AUTO) 70 % (42-75); PLATELET COUNT 314 10^3/uL (130-400)
[2021-12-25] MEDS ORDERED: ONDANSETRON 4 MG/2 ML (SDV) Z0FRAN IVP STA (13:02)
[2021-12-25] MEDS ORDERED: fentaNYL INJ 100 MCG/2 ML AMP IVP STA (13:02)
--- NOTE | 2021-12-25 13:12 | ED General ---
General Chief Complaint: Abdominal/GI Problems Stated Complaint: ABD DISTENTION & PAIN Nursing Triage Note: Patient presents to ED via EMS with c/o abodomial distension and pain. Reports the abdominal distension started last week and the pain started yesterday afternoon. Reports history of ascites and states that she had to have the fluid drained last time. Source of Information: Patient, EMS, Old Records History of Present Illness Date Seen by Provider: Dec 25, 2021 Time Seen by Provider: 12:48 Initial Comments 66-year-old female presenting with complaints of 1 week of increasing abdominal distention and pain that started yesterday. She reports that the abdominal distention and pain is similar to what she had in March when she had to have fluid drained off of her belly. She denies having any trauma to her belly. She states that she has had ascites in the past. She denies having fever or chills. She does have nausea but no vomiting. She denies having any change in her bowels, pain with urination, blood in her stool, blood in her urine. EMS brought her to the emergency department due to her increased pain. She states that due to her liver failure and her heart failure that she was told that she should not take Tylenol or NSAIDs. Timing/Duration: 1 Week Severity: Severe Modifying Factors: worse with Movement Associated Systoms: No Chest Pain, No Cough, No Diaphoresis, No Fever/Chills, No Headaches, No Loss of Appetite; Malaise, Nausea/Vomiting (Nausea but no vomiting); No Rash, No Seizure; Shortness of Air (Chronic and no worse than usual); No Syncope; Weakness (Generalized) Allergies and Home Medications Allergies Coded Allergies: adhesive tape (Verified Allergy, Unknown, 12/25/21) latex (Verified Allergy, Unknown, 04/07/21) irritation and burning sensation Patient Home Medication List Home Medication List Reviewed: Yes ALPRAZolam (ALPRAZolam) 0.25 Mg Tablet, 0.25 MG PO HS, (Reported) Entered as Reported by: JASON WILKINSON on 04/06/21 1328 Aspirin (Aspirin) 81 Mg Tab.chew, 81 MG PO HS, (Reported) Entered as Reported by: JASON WILKINSON on 04/06/21 1328 Cholecalciferol (Vitamin D3) (Vitamin D3) 25 Mcg Capsule, 25 MCG PO DAILY, (Reported) Entered as Reported by: JASON WILKINSON on 04/06/21 132 Colchicine (Colchicine) 0.6 Mg Tablet, 0.6 MG PO BID, (Reported) Entered as Reported by: JASON WILKINSON on 04/06/21 132 Fexofenadine HCl (Coretta Allergy) 180 Mg Tablet, 180 MG PO HS, (Reported) Entered as Reported by: JASON WILKINSON on 04/06/21 132 Fluticasone Propionate (Fluticasone Propionate) 16 Gm [place].susp, 1-2 SPRAY NSEACH BID, (Reported) Entered as Reported by: JASON WILKINSON on 04/06/21 132 Fluticasone/Salmeterol (Advair 250-50 Diskus) 1 Each Blst.w.dev, 1 PUFF INH BID, (Reported) Entered as Reported by: JASON WILKINSON on 04/06/21 132 Furosemide (Furosemide) 40 Mg Tablet, 40 MG PO 0700,1300, (Reported) Entered as Reported by: JASON WILKINSON on 04/06/21 132 Gabapentin (Neurontin) 300 Mg Capsule, 900 MG PO BID, (Reported) Entered as Reported by: JASON WILKINSON on 04/06/21 132 Levothyroxine Sodium (Levothyroxine Sodium) 25 Mcg Tablet, 25 MCG PO DAILY, (Reported) Entered as Reported by: JASON WILKINSON on 04/06/21 132 Lisinopril (Lisinopril) 20 Mg Tablet, 20 MG PO DAILY, (Reported) Entered as Reported by: JASON WILKINSON on 04/06/21 132 Metoprolol Succinate (Metoprolol Succinate) 100 Mg Tab.er.24h, 50 MG PO BID, (Reported) Entered as Reported by: JASON WILKINSON on 04/06/21 132 Oxycodone HCl (Oxycodone HCl) 5 Mg Tablet, 5 MG PO Q4H PRN for PAIN-SEVERE () Prescribed by: GAYLE ESCALANTE on 12/25/21 1505 Pantoprazole Sodium (Pantoprazole Sodium) 40 Mg Tablet.dr, 40 MG PO HS, (Reported) Entered as Reported by: JASON WILKINSON on 04/06/21 132 Spironolactone (Spironolactone) 25 Mg Tablet, 25 MG PO BID Prescribed by: GAYLE ESCALANTE on 12/25/21 1504 Venlafaxine HCl (Venlafaxine HCl ER) 150 Mg Cap.er.24h, 150 MG PO HS, (Reported) Entered as Reported by: JASON WILKINSON on 04/06/21 1328 Review of Systems Review of Systems Constitutional: see HPI; No chills, No fever; malaise, weakness EENTM: no symptoms reported Respiratory: see HPI Cardiovascular: No chest pain Gastrointestinal: see HPI, abdominal pain (Diffuse); No constipation, No diarrhea; nausea; No vomiting Genitourinary: No dysuria, No frequency Musculoskeletal: no symptoms reported Skin: no symptoms reported Psychiatric/Neurological: No Symptoms Reported Hematologic/Lymphatic: Easy Bleeding, Easy Bruising Past Biabypt-Awiyap-Jqqqzd Hx Patient Social History Tobacco Use?: No Use of E-Cig and/or Vaping dev: No Substance use?: No Alcohol Use?: No Pt feels they are or have been: No Immunizations Up To Date Influenza Vaccine Up-to-Date: Yes; Up-to-Date First/Initial COVID19 Vaccinat: october 2020 Second COVID19 Vaccination Moi: october 2020 COVID19 Vaccine Orthodontic Assistant: Anturis Seasonal Allergies Seasonal Allergies: No Past Medical History Surgery/Hospitalization HX: CHF; [place]; Type 2 DM; Hypothyroidism; Gout; Anxiety; GERD; Neuropathy; Liver failure; paracentesis of ascites; x2; cholecysectomy; appendectomy; hysterectomy Surgeries: Yes Appendectomy, Coronary Stent, Gallbladder, Orthopedic Respiratory: Yes COPD Cardiac: Yes Coronary Artery Disease, Hypertension Neurological: No 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 oz. kg; 32.00 BMI Method: General Appearance: Chronically ill HEENT: PERRL/EOMI, Pharynx Normal Neck: Full Range of Motion, Normal Inspection, Non Tender, Supple Respiratory: Chest Non Tender, Lungs Clear, Normal Breath Sounds, No Accessory Muscle Use, No Respiratory Distress Cardiovascular: Regular Rate, Rhythm, Normal Peripheral Pulses Gastrointestinal: Normal Bowel Sounds, No Pulsatile Mass, Soft, Distended, Guarding; No Rebound; Tenderness (diffuse) Rectal: Deferred Extremity: Inflammation (BLE erythema and chronic venous stasis changes. chronic wound on left leg that she sees wound care about and has a dressing in place), Pedal Edema (1+ BLE pitting edema) Neurologic/Psychiatric: Alert, Oriented x3, drop worker II-XII Norm as Tested Skin: Warm/Dry Focused Exam Lactate Level 12/25/21 13:25: Lactic Acid Level 0.90 Lactic Acid Level Laboratory Tests Test 12/25/21 13:25 Lactic Acid Level 0.90 MMOL/L (0.50-2.00) Progress/Results/Core Measures Suspected Sepsis SIRS Temperature: Pulse: 52 Respiratory Rate: 18 Laboratory Tests 12/25/21 12:50: White Blood Count 7.0 Blood Pressure 115 /35 Mean: 61 12/25/21 13:25: Lactic Acid Level 0.90 Laboratory Tests 12/25/21 12:50: Creatinine 1.66H, Platelet Count 314, Total Bilirubin 0.4 Results/Orders Lab Results Laboratory Tests Test 12/25/21 12:50 12/25/21 13:25 12/25/21 13:46 Range/Units White Blood Count 7.0 4.3-11.0 10^3/uL Red Blood Count 2.91 L 3.80-5.11 10^6/uL Hemoglobin 9.4 L 11.5-16.0 g/dL Hematocrit 29 L 35-52 % Mean Corpuscular Volume 99 80-99 fL Mean Corpuscular Hemoglobin 32 25-34 pg Mean Corpuscular Hemoglobin Concent 33 32-36 g/dL Red Cell Distribution Width 16.4 H 10.0-14.5 % Platelet Count 314 130-400 10^3/uL Mean Platelet Volume 10.6 9.0-12.2 fL Immature Granulocyte % (Auto) 0 % Neutrophils (%) (Auto) 70 42-75 % Lymphocytes (%) (Auto) 17 12-44 % Monocytes (%) (Auto) 11 0-12 % Eosinophils (%) (Auto) 1 0-10 % Basophils (%) (Auto) 1 0-10 % Neutrophils # (Auto) 4.9 1.8-7.8 10^3/uL Lymphocytes # (Auto) 1.2 1.0-4.0 10^3/uL Monocytes # (Auto) 0.8 0.0-1.0 10^3/uL Eosinophils # (Auto) 0.1 0.0-0.3 10^3/uL Basophils # (Auto) 0.0 0.0-0.1 10^3/uL Immature Granulocyte # (Auto) 0.0 0.0-0.1 10^3/uL Sodium Level 134 L 135-145 MMOL/L Potassium Level 3.6 3.6-5.0 MMOL/L Chloride Level 104 98-107 MMOL/L Carbon Dioxide Level 17 L 21-32 MMOL/L Anion Gap 13 5-14 MMOL/L Blood Urea Nitrogen 33 H 7-18 MG/DL Creatinine 1.66 H 0.60-1.30 MG/DL Estimat Glomerular Filtration Rate 33 BUN/Creatinine Ratio 20 Glucose Level 91 70-105 MG/DL Calcium Level 9.1 8.5-10.1 MG/DL Corrected Calcium 9.2 8.5-10.1 MG/DL Total Bilirubin 0.4 0.1-1.0 MG/DL Aspartate Amino Transf (AST/SGOT) 12 5-34 U/L Alanine Aminotransferase (ALT/SGPT) 7 0-55 U/L Alkaline Phosphatase 68 40-136 U/L Total Protein 6.5 6.4-8.2 GM/DL Albumin 3.9 3.2-4.5 GM/DL Lipase 36 8-78 U/L Lactic Acid Level 0.90 0.50-2.00 MMOL/L Urine Color YELLOW Urine Clarity CLEAR Urine pH 5.5 5-9 Urine Specific [place] 1.020 1.016-1.022 Urine Protein 1+ H NEGATIVE Urine Glucose (UA) NEGATIVE NEGATIVE Urine Ketones NEGATIVE NEGATIVE Urine Nitrite NEGATIVE NEGATIVE Urine Bilirubin 1+ H NEGATIVE Urine Urobilinogen 0.2 < = 1.0 MG/DL Urine Leukocyte Esterase NEGATIVE NEGATIVE Urine RBC (Auto) NEGATIVE NEGATIVE Urine RBC 2-5 H /HPF Urine WBC 10-25 H /HPF Urine Squamous Epithelial Cells 25-50 H /HPF Urine Crystals NONE /LPF Urine Bacteria MODERATE H /HPF Urine Casts PRESENT /LPF Urine Hyaline Casts 10-25 H /LPF Urine Mucus MODERATE H /LPF Urine Culture Indicated NO My Orders Orders - GAYLE ESCALANTE MD Comprehensive Metabolic Panel (12/25/21 12:52) Lipase (12/25/21 12:52) Ua Culture If Indicated (12/25/21 12:52) Ed Iv/Invasive Line Start (12/25/21 12:52) Cbc With Automated Diff (12/25/21 12:52) Fentanyl Inj (Sublimaze Injection) (12/25/21 13:02) Ondansetron Injection (Zofran Injectio (12/25/21 13:02) Ct Abdomen/Pelvis W (12/25/21 13:03) Iohexol Injection (Omnipaque 350 Mg/Ml 1 (12/25/21 13:15) Received Contrast (Hold Metformin- Contr (12/25/21 13:15) Ns (Ivpb) (Sodium Chloride 0.9% Ivpb Bag (12/25/21 13:15) Lactic Acid Analyzer (12/25/21 13:18) Ns Iv 500 Ml (Sodium Chloride 0.9%) (12/25/21 13:26) Medications Given in ED Current Medications Medications Dose Ordered Sig/Timmy Route Start Time Stop Time Status Last Admin Dose Admin Iohexol 100 ml ONCE ONCE IV 12/25/21 13:15 12/25/21 13:16 DC 12/25/21 13:39 75 ML Sodium Chloride 100 ml ONCE ONCE IV 12/25/21 13:15 12/25/21 13:16 DC 12/25/21 13:40 100 ML Vital Signs/I&O 12/25/21 12/25/21 12:45 15:09 Temp 36.6 36.6 Pulse 52 65 Resp 18 18 B/P (MAP) 115/35 (61) 117/56 Pulse Ox 100 100 O2 Delivery Room Air Room Air Capillary Refill : Less Than 3 Seconds Blood Pressure Mean: 61 Progress Note #1: Progress Note Obtain basic labs to evaluate for liver failure, anemia, heart failure, sepsis, UTI. Obtain CT scan to look in terms of her abdominal distention and possible ascites. Progress Note #2: Progress Note CBC stable without elevation of her white blood cell count. Her hemoglobin shows chronic anemia with a hemoglobin 9.4. Her chemistry panel has elevated BUN and creatinine of [address] scan shows severe amount of ascites and new enhancing lesions in her cirrhotic liver concerning for possible metastatic disease or hepatocellular carcinoma. Radiology recommended dedicated liver imaging once the IV contrast from the scan today had cleared her system. Her urine had shown some skin contamination but no UTI. d/w Dr. Newby and he advised pt could do this procedure as outpt or if she is admitted to [facility] he would see her as consult and perform paracentesis this weekend. Discussed findings and options with patient. Advised that she will need to have dedicated liver imaging once the contrast from today's imaging had cleared her system. She stated that she would prefer to do outpatient testing on draining rather than be admitted. We will send her with a prescription for oxycodone and spironolactone. Encouraged her to return or follow-up sooner if she is having worsening symptoms or increasing pain. Diagnostic Imaging Diagonstic Imaging: CT Plain Films/CT/US/NM/MRI: abdomen, pelvis Comments NAME: ATIF ESPARZA [facility] REC#: [id number] PT STATUS: REG ER : 1955 PHYSICIAN: GAYLE ESCALANTE MD ADMIT DATE: 12/25/21/ER FS Draft Date of Exam:12/25/21 CT ABDOMEN/PELVIS W PROCEDURE: CT abdomen and pelvis with contrast. TECHNIQUE: Multiple contiguous axial images were obtained through the abdomen and pelvis after administration of intravenous contrast. Auto Exposure Controls were utilized during the CT exam to meet ALARA standards for radiation dose reduction. All CT scans use one or more of the following dose optimizing techniques: automated exposure control, MA and/or KvP adjustment based on patient size and exam type or iterative reconstruction. INDICATION: Diffuse abdominal pain, distention, ascites. COMPARISON: None. FINDINGS: The visualized lung bases are clear. Small hiatal hernia. A nodular cirrhotic contour of the liver is identified. Multiple new hyperenhancing lesions are identified throughout the liver, both within the right and left hepatic lobes. This includes a 1.6 cm hyperenhancing lesion within the right hepatic lobe, series 6, image 35. Cholecystectomy. Calcified splenic granuloma. Otherwise, the spleen is unremarkable. The adrenal glands are unremarkable. The pancreas is unremarkable. Minimal right hydronephrosis, appearing more prominent than the prior examination. Subcentimeter hypodensity within the right kidney is too small to fully characterize. Subcentimeter hypodensities within the left kidney are too small to completely characterize though these were present on prior imaging. No evidence of left-sided hydronephrosis. Scattered vascular calcifications without aneurysmal dilatation of the abdominal aorta. The urinary bladder is unremarkable. Uterus is not visualized, likely surgically absent. No abnormal adnexal mass lesion. No bowel obstruction or pneumatosis. Extensive amount of free fluid is noted throughout the abdomen and pelvis. This is associated with mild amount of diffuse anasarca. No free air. Scattered osseous degenerative changes without acute osseous abnormality. Partially calcified soft tissue density within the central mesentery is again seen and similar to the prior examination. IMPRESSION: Cirrhotic morphology of the liver with associated severe amount of ascites and mild diffuse anasarca. Multiple new hyperenhancing lesions scattered throughout the liver. Given these are new lesions within a cirrhotic liver, findings are concerning for hepatocellular carcinoma or metastatic disease. Regenerating nodules would be an additional consideration. Followup CT or MRI of the abdomen with and without contrast using hepatic mass protocol would help to further evaluate after patient has time to clear the contrast which is currently being administered for this examination. Stable minimally calcified soft tissue nodularity within the central mesentery. Dictated on workstation # [id number] Dict: 12/25/21 1343 Trans: 12/25/[address] [facility] [id number] Interpreted by: JOHN NORRIS MD Electronically signed by: Reviewed: Reviewed by Me Departure Impression Primary Impression: Abdominal distention Additional Impressions: Abdominal ascites Qualified Codes: R18.8 - Other ascites Diffuse abdominal pain Cirrhosis of liver Qualified Codes: K74.60 - Unspecified cirrhosis of liver; R18.8 - Other ascites Disposition: 01 HOME, SELF-CARE Condition: Stable Departure-Patient Inst. Decision time for Depature: 14:58 Referrals: SELFSHANNAN MD (PCP) Primary Care Physician ROM NEWBY MD Patient Instructions: Abdominal Pain, Adult ED, Diet for Cirrhosis, Fluid Restricted Diet, Fluid in the Belly (Ascites) (DC), Low Salt Diet Add. Discharge Instructions: Follow strict low-sodium diet with less than 2 g of sodium in a day. Fluid restrictions of 1.5 L of fluid in a day. Use of spironolactone as a diuretic to try and help with the ascites. Dr. NEWBY will have his staff contact you about same-day surgery procedure for paracentesis where he would drain fluid from your abdomen. If you have not heard anything by Monday afternoon you could call his clinic and check. Radiology recommended having dedicated liver imaging with MRI with and without contrast OR CT with and without contrast to better evaluate the liver and why you were developing ascites. [facility] clinic could set this up for you to be done as an outpatient as well. All discharge instructions reviewed with patient and/or family. Voiced understanding. Scripts Oxycodone HCl (Oxycodone HCl) 5 Mg Tablet 5 MG PO Q4H PRN for PAIN-SEVERE (8-10) for 5 Days, #30 TAB 0 Refills Prov: GAYLE ESCALANTE MD 12/25/21 Spironolactone (Spironolactone) 25 Mg Tablet 25 MG PO BID, #60 TAB Prov: GAYLE ESCALANTE MD 12/25/21 GAYLE ESCALANTE MD Dec 25, 2021 13:12
[2021-12-25] MEDS ORDERED: HOLD METFORMIN - RECEIVED CONTRAST 20 ML VIAL IV SCH (13:15)
[2021-12-25] MEDS ORDERED: NS 100 ML (IVPB) BAG IV ONE (13:15)
[2021-12-25] MEDS ORDERED: IOHEXOL 350 MG/ML 100 ML (OMNIPAQUE 350) VIAL IV ONE (13:15)
[2021-12-25 13:19] LABS: ALBUMIN 3.9 GM/DL (3.2-4.5); BILIRUBIN,TOTAL 0.4 MG/DL (0.1-1.0); CALCIUM 9.1 MG/DL (8.5-10.1); CREATININE SERUM 1.66 MG/DL (0.60-1.30); POTASSIUM 3.6 MMOL/L (3.6-5.0); TOTAL PROTEIN 6.5 GM/DL (6.4-8.2)
[2021-12-25] MEDS ORDERED: NS IV 500 ML 500 ML IV STA (13:26)
[2021-12-25 13:52] LABS: BILIRUBIN,URINE 1+ (NEGATIVE); CLARITY,URINE CLEAR; COLOR,URINE YELLOW; GLUCOSE, URINE (UA) NEGATIVE (NEGATIVE); KETONES,URINE NEGATIVE (NEGATIVE); NITRITE,URINE NEGATIVE (NEGATIVE); PH,URINE 5.5 (5-9); PROTEIN,URINE 1+ (NEGATIVE)
[2021-12-25 13:53] LABS: BACTERIA,URINE MODERATE /HPF; LEUKOCYTE ESTERASE ,URINE NEGATIVE (NEGATIVE); SQUAMOUS EPITHELIAL CELL,UR 25-50 /HPF
--- NOTE | 2021-12-25 13:56 | Diagnostic Imaging Report ---
PROCEDURE: CT abdomen and pelvis with contrast. TECHNIQUE: Multiple contiguous axial images were obtained through the abdomen and pelvis after administration of intravenous contrast. Auto Exposure Controls were utilized during the CT exam to meet ALARA standards for radiation dose reduction. All CT scans use one or more of the following dose optimizing techniques: automated exposure control, MA and/or KvP adjustment based on patient size and exam type or iterative reconstruction. INDICATION: Diffuse abdominal pain, distention, ascites. COMPARISON: None. FINDINGS: The visualized lung bases are clear. Small hiatal hernia. A nodular cirrhotic contour of the liver is identified. Multiple new hyperenhancing lesions are identified throughout the liver, both within the right and left hepatic lobes. This includes a 1.6 cm hyperenhancing lesion within the right hepatic lobe, series 6, image 35. Cholecystectomy. Calcified splenic granuloma. Otherwise, the spleen is unremarkable. The adrenal glands are unremarkable. The pancreas is unremarkable. Minimal right hydronephrosis, appearing more prominent than the prior examination. Subcentimeter hypodensity within the right kidney is too small to fully characterize. Subcentimeter hypodensities within the left kidney are too small to completely characterize though these were present on prior imaging. No evidence of left-sided hydronephrosis. Scattered vascular calcifications without aneurysmal dilatation of the abdominal aorta. The urinary bladder is unremarkable. Uterus is not visualized, likely surgically absent. No abnormal adnexal mass lesion. No bowel obstruction or pneumatosis. Extensive amount of free fluid is noted throughout the abdomen and pelvis. This is associated with mild amount of diffuse anasarca. No free air. Scattered osseous degenerative changes without acute osseous abnormality. Partially calcified soft tissue density within the central mesentery is again seen and similar to the prior examination. IMPRESSION: Cirrhotic morphology of the liver with associated severe amount of ascites and mild diffuse anasarca. Multiple new hyperenhancing lesions scattered throughout the liver. Given these are new lesions within a cirrhotic liver, findings are concerning for hepatocellular carcinoma or metastatic disease. Regenerating nodules would be an additional consideration. Followup CT or MRI of the abdomen with and without contrast using hepatic mass protocol would help to further evaluate after patient has time to clear the contrast which is currently being administered for this examination. Stable minimally calcified soft tissue nodularity within the central mesentery. Dictated by: Dictated on workstation # [id number]
[2021-12-25] MEDS ORDERED: OXYC5TAB PO (15:04)
[2021-12-25] MEDS ORDERED: SPIR25TA5 PO (15:04)
[2021-12-25 15:09] VITALS: BP 117/56
[2021-12-29] MEDS ORDERED: ALLOPURINOL (12:25)
== END 2021-12-25 15:08 | disposition home or self-care (01) ==
LOC: EDUNIT# 12:34 → ER FS 12:35
DX: K74.60 Unspecified cirrhosis of liver (principal); R18.8 Other ascites; D64.89 Other specified anemias; R79.89 Other specified abnormal findings of blood chemistry; R94.4 Abnormal results of kidney function studies; Z90.49 Acquired absence of other specified parts of digestive tract; Z90.710 Acquired absence of both cervix and uterus
CPT/HCPCS: 36415; 74177; 80053; 81000; 83605; 83690; 85025; Q9967

== ENCOUNTER → 2021-12-29 | Outpatient (CLI) | payer MEDICARE, MEDICAID ==
[~2021-12-29] VITALS: Ht 162.6 cm; Wt 74.6 kg
[~2021-12-29] MED LIST changes: +ALLOPURINOL; +LIDOCAINE 1% INJ 20 ML VIAL INJ ONE; +LIDOCAINE 1% INJ 20 ML VIAL ONE; +OXYC5TAB PO
[2021-12-29 12:10] VITALS: BP 127/56
--- NOTE | 2021-12-29 12:51 | Diagnostic Imaging Report ---
INDICATION: Ascites. FINDINGS: Evaluation of all 4 quadrants of the abdomen was performed. Moderate ascites is identified in all 4 quadrants. The right lower quadrant was marked for performance of a paracentesis. IMPRESSION: Moderate abdominal ascites. Dictated by: Dictated on workstation # [id number]
--- NOTE | 2021-12-29 21:49 | OPERATIVE REPORT ---
DATE OF SERVICE: 12/29/2021 ATTENDING PRIMARY CARE PHYSICIAN: Dr. Wagner Light. INDICATIONS: The patient is a 66-year-old female who initially presented to the Emergency Department in 03/2021 with bilateral lower extremity edema as well as significant abdominal distention. She has had a significant history of coronary artery disease as well as a previous myocardial infarction and multiple stents placed. She felt that her lower extremities had become swollen and this caused her to feel weakness as well. A CT scan was performed, which did show a significant amount of ascites as well as likely component of liver cirrhosis and on that admission, she underwent a paracentesis. Since that time, she has done well; however, has had slow gradual increase in abdominal distention and she was seen in the Emergency Department and again was found to have recurrent ascites, symptomatic ascites. Before the procedure, an ultrasound was performed and the left lower abdomen was marked. The abdomen was then prepped and draped in standard surgical fashion. A 1% lidocaine was then used to anesthetize the skin, subcutaneous tissue, muscle layers as well as the peritoneal lining. A vertical skin incision was made using 11-blade. The trocar and catheter were then introduced withdrawing of straw yellow transudative fluid. The catheter was then advanced over the trocar without any resistance. The catheter was then connected to tubing and a gravity drainage bag. Catheter was then covered with sterile gauze followed by Op-Site. The patient tolerated the procedure well. We will continue with drainage until drainage decreases or stops or the abdominal distention decreases, and she is asymptomatic and then remove the catheter. When she does have reoccurrence, she will be instructed to call the office to schedule another paracentesis in same day surgery. Job ID: [id number] DocumentID: [id number] Dictated Date: 12/29/2021 14:37:57 [employer] Bookkeeper Date: 12/29/2021 21:48:51 Dictated By: ROM MARLEY MD
== END ==
LOC: RAD 12:01
PROVIDERS: ATTEND Surgery
DX: R18.8 Other ascites (principal)
CPT/HCPCS: 49082; 76942